=== PATIENT | male | born 1970 | race Caucasian/White ===

== ENCOUNTER → 2017-03-10 15:34 | Outpatient (CLI) | payer MEDICAID, SELFPAY ==
[2017-03-10 18:11] LABS: Alanine Aminotransferase 58 U/L (12-78); Albumin Level 3.5 gm/dL (3.4-5.0); Alkaline Phosphatase 70 U/L (46-116); Anion Gap 11.2 mEq/L (5-15); Aspartate Amino Transferase 26 U/L (15-37); Bilirubin,Total 0.4 mg/dL (0.2-1.0); Blood Urea Nitrogen 16 mg/dL (7-18); Calcium 8.7 mg/dL (8.5-10.1); Carbon Dioxide 30 mmol/L (21.0-32.0); Chloride 100 mmol/L (98-107); Chol/HDL Ratio 5.5 (1-3.5); Cholesterol 143 mg/dL (140-200); Estimated Glomerular Filt Rate 73 ml/min (>60); GFR (African American) 88 ML/MIN (>60); Globulin 3.5 gm/dl (1.3-3.2); Glucose 250 mg/dL (74-106); HDL Cholesterol 26 mg/dL (27-67); Potassium 4.2 mmoL/L (3.5-5.1); Sodium 137 mmol/L (136-145); Thyroid Stimulating Hormone 1.15 uIU/ml (0.358-3.740)
[2017-03-10 18:13] LABS: Triglycerides 510 mg/dL (30-200)
== END ==
PROVIDERS: PCP Nurse Practitioner Family; Visit Provider Physician Assistant
DX: I25.10 Atherosclerotic heart disease of native coronary artery without angina pectoris (principal); I10 Essential (primary) hypertension; E78.1 Pure hyperglyceridemia
CPT/HCPCS: 36415; 80053; 80061; 84443

== ENCOUNTER → 2017-10-06 14:21 | Outpatient (CLI) | payer MEDICAID, SELFPAY ==
--- NOTE | 2017-10-06 14:28 | US_ITS ---
US Arterial Ankle Brachial Ind HISTORY:. Claudication both legs with rest pain bilateral. Diabetic. Previous angioplasty. Hypertension. DC. Smoker. Hyperlipidemia. CAD. Previous vascular surgery. . TECHNIQUE: Segmental pressures obtained of both right and left leg. These are compared to brachial blood pressure to yield index at each level sampled including summary MARCO. The data sheets from the procedure are available in PACS FINDINGS Rest study only performed today No prior studies available for comparison. Blood pressures reported are in millimeters mercury. RIGHT LEG MARCO = 0.8. Right TBI = 0.7 Brachial BP: 164 Thigh BP: BP 125 with index 0.76 Calf BP: BP 125 with index 0.76 Ankle PT: BP 134 with index 0.82 Ankle DP : BP 134 index 0.82 Digit =AP 106 with index 0.65 LEFT LEG MARCO = 0.8 Left TBI = 0.8 Brachial BPD: 161 Thigh BP: BP 106 with index 0.65 Calf BP: BP 129 with index 0.79 Ankle PT:BP 1:30 with index 0.179 Ankle DP: BP 127 with index 0.77 Digit = BP 120 with index 0.78 Normal waveforms: . But Diminished pulses bilaterally IMPRESSION: Mild flow restriction bilaterally With normal waveforms but somewhat diminished pulses bilaterally .RIGHT LEG MARCO = 0.8. Right TBI = 0.7 LEFT LEG MARCO = 0.8 Left TBI = 0.8
== END ==
PROVIDERS: PCP Nurse Practitioner Family; Visit Provider Nurse Practitioner Family
DX: I70.223 Atherosclerosis of native arteries of extremities with rest pain, bilateral legs (principal)
CPT/HCPCS: 93922

== ENCOUNTER → 2018-01-26 15:32 | Outpatient (CLI) | payer MEDICAID, SELFPAY ==
[2018-01-26 16:40] LABS: Alanine Aminotransferase 50 U/L (12-78); Albumin Level 3.4 gm/dL (3.4-5.0); Albumin/Globulin Ratio 0.9 (1.1-1.8); Alkaline Phosphatase 68 U/L (46-116); Anion Gap 9.3 mEq/L (5-15); Aspartate Amino Transferase 18 U/L (15-37); Bilirubin,Total 0.7 mg/dL (0.2-1.0); Blood Urea Nitrogen 11 mg/dL (7-18); Calcium 8.6 mg/dL (8.5-10.1); Carbon Dioxide 33 mmol/L (21.0-32.0); Chloride 102 mmol/L (98-107); Chol/HDL Ratio 4.2 (1-3.5); Cholesterol 121 mg/dL (140-200); Creatinine,Serum 1.05 mg/dL (0.70-1.30); Estimated Glomerular Filt Rate 76 ml/min (>60); GFR (African American) 92 ML/MIN (>60); Globulin 3.9 gm/dl (1.3-3.2); Glucose 187 mg/dL (74-106); HDL Cholesterol 29 mg/dL (27-67); LDL Cholesterol 53 mg/dL (0-130); Potassium 3.3 mmoL/L (3.5-5.1); Sodium 141 mmol/L (136-145); Thyroid Stimulating Hormone 0.73 uIU/ml (0.358-3.740); Total Protein,Serum 7.3 gm/dL (6.4-8.2); Triglycerides 196 mg/dL (30-200); VLDL Cholesterol 39 mg/dL (0-40)
== END ==
PROVIDERS: Visit Provider Physician Assistant
DX: I25.10 Atherosclerotic heart disease of native coronary artery without angina pectoris (principal); E78.5 Hyperlipidemia, unspecified; E78.1 Pure hyperglyceridemia
CPT/HCPCS: 36415; 80053; 80061; 84443

== ENCOUNTER → 2018-02-02 13:00 | Outpatient (CLI) | payer MEDICAID, SELFPAY ==
--- NOTE | 2018-02-02 13:05 | CI_ITS ---
Cerebrovascular Exam Indications: 433.10 Occlusion/stenosis of carotid artery without cerebral infarction. IMPRESSIONS 1. The bilateral vertebral arteries are patent with normal antegrade flow. 2. Study suggests less than 20% stenosis involving the right internal carotid artery and the left internal carotid artery. History: Risk factors: Current tobacco use. Hypertension. Diabetes mellitus. Hyperlipidemia. Carotid duplex study. Complete study and Doppler flow study including spectral analysis, color and chaudhary scale imaging. Height: Height: 172.7cm. Height: 68in. Weight: Weight: 122.5kg. Weight: 269.4lb. Body mass index: BMI: 41.1kg/m^2. Body surface area: BSA: 2.48m^2. Location: Vascular laboratory. Patient status: Outpatient. Tables: Arterial flow: + +--------+--------+ Location V sys V ed + +--------+--------+ Right CCA - proximal 149cm/s 34.1cm/s + +--------+--------+ Right CCA - distal 117cm/s 29.7cm/s + +--------+--------+ Right ECA 141cm/s -------- + +--------+--------+ Right ICA - proximal 92.5cm/s 28.8cm/s + +--------+--------+ Right ICA - mid 99.5cm/s 35.8cm/s + +--------+--------+ Right ICA - distal 98.7cm/s 33.2cm/s + +--------+--------+ Right vertebral 58.5cm/s -------- + +--------+--------+ Left CCA - proximal 158cm/s 28.8cm/s + +--------+--------+ Left CCA - distal 110cm/s 22.7cm/s + +--------+--------+ Left ECA 163cm/s -------- + +--------+--------+ Left ICA - proximal 90.8cm/s 23.6cm/s + +--------+--------+ Left ICA - mid 125cm/s 45.4cm/s + +--------+--------+ Left ICA - distal 127cm/s 43.7cm/s + +--------+--------+ Left vertebral 60.2cm/s -------- + +--------+--------+ Velocity ratios: + + + + + + Right, V sys Right, V ed Left, V sys Left, V ed + + + + + + Max ICA/dist CCA 0.85 1.21 1.15 2 + + + + + + (Report amended ) Electronically signed by: Binu Tavarez [id number]
== END ==
PROVIDERS: PCP Nurse Practitioner Family; Visit Provider Physician Assistant
DX: I65.29 Occlusion and stenosis of unspecified carotid artery
CPT/HCPCS: 93880

== ENCOUNTER 2018-09-24 16:00 | Outpatient (RCR) | payer MEDICAID, SELFPAY | END 2018-10-05 15:36 | disposition home or self-care (01) | LOC: PT.CARL 16:00 | PROVIDERS: Visit Provider Nurse Practitioner Family | DX: M54.5 Low back pain (principal) | CPT/HCPCS: 97012; 97110; 97140; 97163 ==

== ENCOUNTER → 2021-03-22 12:45 | Outpatient (CLI) | payer MEDICAID, SELFPAY ==
--- NOTE | 2021-03-22 12:50 | XR_ITS ---
FINAL REPORT CLINICAL HISTORY: SOB COMPARISON: 09/08/2015 FINDINGS: Two views of the chest were obtained. The heart size and pulmonary vascularity are within normal limits. The mediastinum is normal. No acute pulmonary abnormality is identified. There is no pneumothorax. The bony thorax is intact. IMPRESSION: No active cardiopulmonary disease. Reviewed, Interpreted and Dictated by Ciro Rahman III, MD Transcribed by Radha Riddle Authenticated by Ciro Rahman III, MD on 03/22/2021 01:22:08 PM [facility]
[2021-03-22 13:30] VITALS: PULSE 58; PULSE 61
== END ==
PROVIDERS: PCP Nurse Practitioner Family; Visit Provider Internal Medicine Pulmonary Disease
DX: R06.00 Dyspnea, unspecified (principal)
CPT/HCPCS: 71046; 94060; 94618; 94640; 94727; 94729; 94762

== ENCOUNTER → 2021-04-05 13:54 | Outpatient (CLI) | payer MEDICAID, SELFPAY | PROVIDERS: PCP Nurse Practitioner Family; Visit Provider Internal Medicine Pulmonary Disease | DX: G47.30 Sleep apnea, unspecified (principal) ==

== ENCOUNTER → 2021-06-15 14:45 | Outpatient (CLI) | payer MEDICAID, SELFPAY ==
--- NOTE | 2021-06-15 14:53 | CT_ITS ---
FINAL REPORT TECHNIQUE: Axial CT images were performed through the chest without contrast. High-resolution protocol was utilized with 1.25 mm slices at 10 mm intervals. Study includes supine inspiratory and expiratory sequences and prone inspiratory sequences. Coronal reformatted images were submitted. CLINICAL HISTORY: abn cxr FINDINGS: There is no axillary adenopathy. There is no hilar or mediastinal adenopathy. The heart size is normal. There is some mild to moderate vascular calcification in the coronary arteries. The lungs are clear. The supine expiratory images demonstrates some crowding and markings at the lung bases. There is no evidence of significant air trapping. On the prone inspiratory images, the lungs are clear. Limited images of the upper abdomen are unremarkable. IMPRESSION: Essentially negative chest CT. Reviewed, Interpreted and Dictated by Carlin Handy MD Transcribed by Melisa Duenas Authenticated by Carlin Handy MD on 06/15/2021 04:25:24 PM [facility]
== END ==
PROVIDERS: PCP Nurse Practitioner Family; Visit Provider Internal Medicine Pulmonary Disease
DX: R06.02 Shortness of breath (principal)
CPT/HCPCS: 71250

== ENCOUNTER → 2021-10-11 14:24 | Outpatient (CLI) | payer MEDICAID, SELFPAY | PROVIDERS: PCP Nurse Practitioner Family; Visit Provider Internal Medicine Pulmonary Disease | DX: R06.00 Dyspnea, unspecified (principal) | CPT/HCPCS: 94070; 95070; J7674 ==

== ENCOUNTER → 2022-07-18 12:32 | Outpatient (CLI) | payer MEDICAID, SELFPAY ==
--- NOTE | 2022-07-18 13:33 | CT_ITS ---
FINAL REPORT TECHNIQUE: Axial images were obtained from the lung apex to the mid abdomen by computed tomography. This study was performed with techniques to keep radiation doses as low as reasonably achievable (ALARA). Individualized dose reduction techniques using automated exposure control or adjustment of mA and/or kV according to the patient's size were employed. CLINICAL HISTORY: lung cancer screening COMPARISON: 06/15/2021 FINDINGS: CHEST CT LOW DOSE CTDI vol (mGy): 2.90 DLP (mGy-cm): 98.99 There is dense coronary artery calcification in the LAD and circumflex. There is no axillary adenopathy. There is no hilar or mediastinal adenopathy. The heart is normal in size. There is no pericardial or pleural effusion. Lung window images demonstrate no suspicious infiltrate or nodule. Limited images of the upper abdomen are unremarkable. IMPRESSION: Lung RADS category 1. Recommend 12 month follow-up low-dose chest CT. Reviewed, Interpreted and Dictated by Carlin Handy MD Transcribed by Radha Riddle Authenticated and [facility]
== END ==
PROVIDERS: PCP Nurse Practitioner Family; Visit Provider Internal Medicine Pulmonary Disease
DX: Z87.891 Personal history of nicotine dependence (principal); Z12.2 Encounter for screening for malignant neoplasm of respiratory organs; R06.09 Other forms of dyspnea
CPT/HCPCS: 71271; 94060; 94618; 94726; 94729

== ENCOUNTER 2023-07-23 14:41 | Outpatient (CLI) | payer MEDICAID, SELFPAY ==
--- NOTE | 2023-07-23 14:42 | CT_ITS ---
FINAL REPORT CLINICAL HISTORY: lung cancer screening current smoker 1ppd x 30 years chf lung cancer in father and sister COMPARISON: 07/18/2022 FINDINGS: CTDI vol (mGy): 2.90 DLP: 98.[address] images of the chest were obtained using the low-dose protocol for screening. There is no evidence of mediastinal or hilar mass or adenopathy. No axillary mass or adenopathy is identified. On the lung window images, no pulmonary mass or suspicious nodule is identified. There is a calcified granuloma in the right lower lobe. Severe left coronary artery calcifications are noted. IMPRESSION: Lung RADS category 1 . Recommend 12 month followup low-dose CT for further evaluation. Reviewed, Interpreted and Dictated by Ciro Rahman III, MD Transcribed by Diana Blanchard Authenticated and . [facility]
== END 2023-07-23 23:59 | disposition home or self-care (01) ==
LOC: RT 14:42
PROVIDERS: PCP Internal Medicine; Visit Provider Internal Medicine Pulmonary Disease
DX: F17.210 Nicotine dependence, cigarettes, uncomplicated (principal)
CPT/HCPCS: 71271

== ENCOUNTER 2023-08-06 14:39 | Outpatient (CLI) | payer MEDICAID, SELFPAY ==
[2023-08-06 16:35] VITALS: PULSE 83; PULSE 86
[2023-08-06] MEDS: ALBUTEROL 0.083% 2.5 MG/3 ML NEB IH (16:35)
== END 2023-08-06 23:59 | disposition home or self-care (01) ==
LOC: RT 14:40
PROVIDERS: PCP Internal Medicine; Visit Provider Internal Medicine Pulmonary Disease
DX: R06.09 Other forms of dyspnea (principal); J44.9 Chronic obstructive pulmonary disease, unspecified
CPT/HCPCS: 94060; 94618; 94640; 94726; 94729; J7613

== ENCOUNTER 2023-09-22 13:30 | Outpatient (CLI) | payer MEDICAID, SELFPAY ==
[2023-09-22 14:00] LABS: Basophils # 0.1 K/mm3 (0-0.2); Basophils % 0.6 % (0.1-2.0); Eosinophils # 0.2 K/mm3 (0.0-0.4); Eosinophils % 2.1 % (0.1-12.0); Hematocrit 45.7 % (42.0-52.0); Hemoglobin 15.3 g/dL (14.1-18.0); Lymphocytes # 2.3 K/mm3 (0.7-4.5); Lymphocytes % 26.6 % (10-50); Mean Corpuscular HGB Conc 33.4 g/dL (31.8-35.4); Mean Corpuscular Hemoglobin 33.4 pg (27.0-31.2); Mean Platelet Volume 8.3 fl (7.4-10.4); Monocytes # 0.4 K/mm3 (0.1-1.0); Monocytes % 5.1 % (1.7-9.3); Neutrophils # 5.6 K/mm3 (1.8-7.8); Neutrophils % 65.4 % (37.0-80.0); Platelet Count 236 K/mm3 (142-424); Red Blood Count 4.57 M/mm3 (4.60-6.20); Red Cell Distribution Width 14.8 % (11.5-17.5); White Blood Count 8.6 K/mm3 (4.8-10.8)
[2023-09-28 09:39] LABS: D001-IgE D pteronyssinus <0.10 kU/L (Class 0); D002-IgE D farinae <0.10 kU/L (Class 0); E001-IgE Cat Dander <0.10 kU/L (Class 0); E005-IgE Dog Dander <0.10 kU/L (Class 0); E072-IgE Mouse Urine <0.10 kU/L (Class 0); G002-IgE Bermuda Grass <0.10 kU/L (Class 0); G006-IgE Timothy Grass <0.10 kU/L (Class 0); I006-IgE Cockroach, German <0.10 kU/L (Class 0); Immunoglobulin E, Total 180 IU/mL (6-495); M001-IgE Penicillium chrysogen <0.10 kU/L (Class 0); M002-IgE Cladosporium herbarum <0.10 kU/L (Class 0); M003-IgE Aspergillus fumigatus <0.10 kU/L (Class 0); M006-IgE Alternaria alternata <0.10 kU/L (Class 0); T001-IgE Maple/Box Elder <0.10 kU/L (Class 0); T003-IgE Common Silver Birch <0.10 kU/L (Class 0); T006-IgE Cedar, Mountain <0.10 kU/L (Class 0); T007-IgE Oak, White <0.10 kU/L (Class 0); T008-IgE Elm, American <0.10 kU/L (Class 0); T010-IgE Walnut <0.10 kU/L (Class 0); T011-IgE Maple Leaf Sycamore <0.10 kU/L (Class 0); T014-IgE Cottonwood <0.10 kU/L (Class 0); T015-IgE Ash, White <0.10 kU/L (Class 0); T022-IgE Pecan, Hickory <0.10 kU/L (Class 0); T070-IgE White Mulberry <0.10 kU/L (Class 0); W001-IgE Ragweed, Short <0.10 kU/L (Class 0); W011-IgE Thistle, Russian <0.10 kU/L (Class 0); W014-IgE Pigweed, Common <0.10 kU/L (Class 0); W018-IgE Sheep Sorrel <0.10 kU/L (Class 0)
[2023-10-08 15:28] LABS: Antinuclear Antibodies (ANA) Negative
== END 2023-09-22 23:59 | disposition home or self-care (01) ==
LOC: LAB 13:31
PROVIDERS: PCP Internal Medicine; Visit Provider Internal Medicine Pulmonary Disease
DX: J45.909 Unspecified asthma, uncomplicated (principal); J30.9 Allergic rhinitis, unspecified; J84.9 Interstitial pulmonary disease, unspecified; Z72.0 Tobacco use
CPT/HCPCS: 36415; 82785; 85025; 86003; 86038; 86225; 86235

== ENCOUNTER 2024-08-18 12:51 | Outpatient (CLI) | payer MEDICAID, SELFPAY ==
--- OUTSIDE RECORDS SUMMARY | 2024-07-20 10:15 | XMS_ITS | Continuity of Care Document ---
Author Organization [facility] Phone Care Team Providers Care Family Assistant Name Role Phone DON CARRANZA Admitting NO, DEFINED P Primary Care Unavailable DON CARRANZA Primary Attending [phone] DON CARRANZA Unavailable ALLERGIES AND ADVERSE REACTIONS ALLERGIES AND ADVERSE REACTIONS Code System Allergy Substance Adverse Reaction Date Reaction (Severity) [place] [address] RXNorm LISINOPRIL Adverse reaction to substance COUGH active Patient [id number] on September 12, 2015 9:11:41 PM [place] 7984 RXNorm PENICILLIN Rash active Patient [id number] on July 19, 2024 11:36:10 AM [place] 5489 RXNorm HYDROCODONE Adverse reaction to substance upset stomach active Patient [id number] on July 19, 2024 11:36:10 AM [place] FAMILY HISTORY RELATION: Father Status: Cause of : Unknown Age at : 72 SNOMED-CT Diagnosis Age At Onset [id number] Heart disease [id number] Malignant tumor of lung RELATION: Mother Status: Cause of : Unknown Age at : 72 SNOMED-CT Diagnosis Age At Onset [id number] Heart disease [id number] Hypertensive disorder [id number] Diabetes mellitus [id number] Cerebrovascular accident RESULTS Patient: GERONIMO Sandoval Date of : 1970 7 LABORATORY RESULTS ORDER 200: GRAM STAIN (LOINC : 664-3) ORDER DATE: July 14, 2024 9:32:00 PM UTC Specimen Source: GRAM STAIN Specimen Type: Gram stain me thod PERFORMING LAB: [address] [id number] Result Comment: Final Result Date: 2024 7:51:00 PM [place] (TECH: AAC) LOINC TEST [place] [address]-4 Specimen source [Identifier] of Unspecified specimen N WOUND July 15 7:51:00 PM UTC (TECH: AAC) 664-3 Microscopic observat ion [Identifier] in Unspecified specimen by Gram stain N POSITIVE 2024 7:51:00 PM UTC (TECH: AAC) 51411-4 Morphology [interpretation] in Blood Narrative N COCCI CLUSTERS 2024 7:51:00 PM UTC (TECH: AAC) 07335-7 Other quantitation b y CAP cancer protocols N RARE July 15 7:51:00 PM UTC (TECH: AAC) 664-3 Microscopic observat ion [Identifier] in Unspecified specimen by Gram stain N POSITIVE 2024 7:51:00 PM UTC (TECH: AAC) 09062-3 Morphology [interpretation] in Blood Narrative N COCCI PAIRS 2024 7:51:00 PM UTC (TECH: AAC) 22885-9 Other quantitation b y CAP cancer protocols N RARE July 15 7:51:00 PM UTC (TECH: AAC) 55186-2 Leukocytes [Presence ] in Unspecified specimen by Gram stain N OCCASIONAL 2024 7:51:00 PM UTC (TECH: AAC) 28431-1 Epithelial cells [Presence] in Unspecified specimen by Gram stain N NONE SEEN 2024 7:51:00 PM UTC (TECH: AAC) 94601-3 Yeast [Presence] in Unspecified specimen by Wet preparation N NO YST SEEN 2024 7:51:00 PM UTC (TECH: AAC) 53866-8 Gram positive bacter ia identified [Interpretation] by Probe in Positive blood culture N PASS PASS 2024 7:51:00 PM UTC (TECH: AAC) 73565-4 Gram negative bacill i identified in Isolate by Organism specific culture N PASS PASS 2024 7:51:00 PM UTC (TECH: AAC) LABORATORY NARRATIVE RESULTS Information is not available RADIOLOGY RESULTS Information is not available PATHOLOGY NARRATIVE RESULTS Information is not available MICROBIOLOGY RESULTS No Micro Labs/Results Exist for Patient BLOOD ADMIN RESULTS Information is not available MEDICATIONS HOME MEDICATIONS Status RXNORM NDC Medication Dose Route Frequency Dates Comments Reported By Updated By Drug Treatment Unknown DISCHARGE MEDICATIONS Status RXNORM NDC Medication Dose Route Frequency Dates Comments Physician Updated By No Discharge Medication Info rmation Available INPATIENT MEDICATIONS Status RXNORM NDC Medication Dose Route Frequency Rat e Quantity Dates Comments Physician Updated By No Inpatient Medication Info rmation Available SOCIAL HISTORY SOCIAL HISTORY SNOMED-CT Social History Element Description Effective Dates Offered Cessation Comment UpdatedBy [id number] Historical Tobacco smoking status Current Every Day Smoker [id number] on July 20, 2024 11:37:53 AM [facility] SOCIAL HISTORY - Gender Sex: Male SOCIAL HISTORY - Status : status i nformation is not available Intention in Next Year: intention information is not available SOCIAL HISTORY - Sexual Behavior Sexual Orientation Gender Identity SNOMED-CT Description SNO MED -CT Description Activity Level No of Partners Partner Type UpdatedBy Information is not available HEALTH CONCERNS Problems Concern Status Health Concern problem infor mation not available. Smoking Status Status Years Used Consumed packs p er day Health Concern smoking histo ry information not available. Family History Concern Status Health Concern family histor y information not available. MEDICAL EQUIPMENT MEDICAL EQUIPMENT Device Status Quantity Dates Procedure Comments Updated By Implantable lumbar neuromuscular electrical stimulation system lead FRED: ()[id number] Assigning Authority: [facility] Device Identifier:[id number] Serial Number:[id number] Expiration Date:2025-11-12 ACTIVE 1 Implanted: February 03, 2024 Implantation of permanent spinal cord stimulator [id number] on February 03, 2024 9:09:16 PM [facility] Implantable lumbar neuromuscular electrical stimulation system lead FRED: )[id number] Assigning Authority: FDA Device Identifier:[id number] Serial Number:[id number] Expiration Date:2025-10-10 ACTIVE 1 Implanted: February 03, 2024 Implantation of permanent spinal cord stimulator [id number] on February 03, 2024 9:09:44 PM [facility] Implantable lumbar neuromuscular electrical stimulation system pulse generator FRED: )[id number] Assigning Authority: FDA Device Identifier:[id number] Serial Number:[id number] Expiration Date:2025-11-13 ACTIVE 1 Implanted: February 03, 2024 Implantation of permanent spinal cord stimulator [id number] on February 03, 2024 9:15:40 PM [facility] Catheter/tube guerrero FRED: [id number] Assigning Authority: [facility] Device Identifier:[id number] Lot or Batch Number:[id number] Expiration Date:2025-11-09 ACTIVE 2 Implanted: February 03, 2024 Implantation of permanent spinal cord stimulator [id number] on February 03, 2024 9:16:07 PM [place] ENCOUNTERS ENCOUNTER INFORMATION Reason for Visit OV Admission July 14, 2024 4:56:[address] [id number] Discharge July 14, 2024 4:56:00 PM UT DISC HARGED TO HOME OR SELF CARE ENCOUNTER DIAGNOSES Notes information is not dennis ilable. Code System Diagnosis Onset Date Diagnosis information is not available. 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, UNSPECIFIED [id number] on July 20, 2024 2:15:12 PM UT E11.22 ICD10 TYPE 2 DIABETES MELLITUS WITH DIABETIC CHRONIC KIDNEY DISEASE [id number] on July 20, 2024 2:15:12 PM UT N18.9 ICD10 CHRONIC KIDNEY DISEASE, UNSP ECIFIED [id number] on July 20, 2024 2:15:12 PM UT M79.2 ICD10 NEURALGIA AND NEURITIS, UNSP ECIFIED [id number] on July 20, 2024 2:15:12 PM UT 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, LUMBAR REGION [id number] on July 20, 2024 2:15:12 PM UT F11.20 ICD10 OPIOID DEPENDENCE, UNCOMPLIC ATED [id number] on July 20, 2024 2:15:12 PM [facility] F17.200 ICD10 NICOTINE DEPENDE NCE, UNSPECIFIED, UNCOMPLICATED [id number] on July 20, 2024 2:15:12 PM UT Z79.4 ICD10 USP (CURRENT) USE OF I NSULIN [id number] on July 20, 2024 2:15:12 PM UT Z79.84 ICD10 QUANTITATIVE ANALYST (CURRE NT) USE OF ORAL HYPOGLYCEMIC DRUGS [id number] on July 20, 2024 2:15:12 PM UT Z79.85 ICD10 LONG-TERM (CURRE NT) USE OF INJECTABLE NON-INSULIN ANTIDIABETIC DRUGS [id number] on July 20, 2024 2:15:12 PM UT Z86.73 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), AND CEREBRAL INFARCTION WITHOUT RESIDUAL DEFICITS [id number] on July 20, 2024 2:15:12 PM UT Z79.02 ICD10 USP (CURRE NT) USE OF ANTITHROMBOTICS/ANTIPLATELETS [id number] on July 20, 2024 2:15:12 PM [facility] Z79.82 ICD10 USP (CURRENT) USE OF A SPIRIN [id number] on July 20, 2024 2:15:12 PM [facility] Z96.82 ICD10 PRESENCE OF NEUROSTIMULATOR [id number] on July 20, 2024 2:15:12 PM [facility] Z88.0 ICD10 ALLERGY STATUS TO PENICILLIN [id number] on July 20, 2024 2:15:12 PM [facility] Z88.8 ICD10 ALLERGY STATUS T O OTHER DRUGS, MEDICAMENTS AND BIOLOGICAL SUBSTANCES [id number] on July 20, 2024 2:15:12 PM [facility] CARE TEAM Care Family Assistant Role DON CARRANZA Admitting DEFINED NO Primary Care DON CARRANZA Primary Attending DON CARRANZA 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 Role on Team Status Start Date End Date Update d By NO DEFINED PRIMARY C PCP normal July 14, 2024 4:00:00 AM [facility] July 14, 2024 4:56:00 PM [facility] [id number] on July 14, 2024 4:57:12 PM [facility] TERE Boyd PHY Referring normal July 14, 2024 4:00:00 AM [facility] July 14, 2024 4:56:00 PM [facility] [id number] on July 14, 2024 4:57:12 PM [facility] TERE MCGREGOR Attending normal July 14, 2024 4:00:00 AM [facility] July 14, 2024 4:56:00 PM [facility] [id number] on July 14, 2024 4:57:12 PM [facility] TERE MCGREGOR Admitting normal July 14, 2024 4:00:00 AM [facility] July 14, 2024 4:56:00 PM [facility] [id number] on July 14, 2024 4:57:12 PM [facility]
--- OUTSIDE RECORDS SUMMARY | 2024-07-22 10:28 | XMS_ITS | Continuity of Care Document ---
Author Organization [facility] Phone Care Team Providers Care Olive Grower Name Role Phone NO, DEFINED P Primary Care Unavailable NO, DEFINED P Unavailable Unavailable DON HERRERA Admitting DON HERRERA Primary Attending [phone] DON HERRERA Surgeon ALLERGIES AND ADVERSE REACTIONS ALLERGIES AND ADVERSE REACTIONS Code System Allergy Substance Adverse Reaction Date Reaction (Severity) [place] [address] RXNorm LISINOPRIL Adverse reaction to substance COUGH active Patient [id number] on September 12, 2015 9:11:41 PM UT 0417 RXNorm PENICILLIN Rash active Patient [id number] on July 19, 2024 11:36:10 AM UT 5427 RXNorm HYDROCODONE Adverse reaction to substance upset stomach active Patient [id number] on July 19, 2024 11:36:10 AM UT ASSESSMENTS Complication associated with neurological device ; FAMILY HISTORY RELATION: Father Status: Cause of : Unknown Age at : 72 SNOMED-CT Diagnosis Age At Onset [id number] Heart disease [id number] Malignant tumor of lung RELATION: Mother Status: Cause of : Unknown Age at : 72 SNOMED-CT Diagnosis Age At Onset [id number] Heart disease [id number] Hypertensive disorder [id number] Diabetes mellitus [id number] Cerebrovascular accident PROBLEMS PATIENT PROBLEMS Code Description/Comments Category Status Upda roque By [id number] Complication associa roque with neurological device active [id number] on July 20 10:52:47 AM UT RESULTS Patient: GERONIMO Sandoval Date of : 1970 7 LABORATORY RESULTS ORDER 700: COMP METABOLIC PA LIOR (LOINC: 48961-1) ORDER DATE: July 19, 2024 6:18:00 PM UT Specimen Source: PLASMA Specimen Type: Plasma specim en PERFORMING LAB: [facility] [address] [id number] Result Comment: Final Result Date: July 19, 2024 9:25:00 PM UTC (TECH: [facility]raPass) LOINC TEST FLAG RESULT REFERENCE RANGE UPDA ROQUE BY 2951-2 Sodium [Moles/volume ] in Serum or Plasma N 143 mmol/L 136 mmol/L - 145 mmol/L July 19, 2024 9:25:00 PM UTC (TECH: JNJ) 2823-3 Potassium [Moles/volume] in Serum or Plasma N 4.1 mmol/L 3.6 mmol/L - 5.0 mmol/L July 19, 2024 9:25:00 PM UTC (TECH: JNJ) 2075-0 Chloride [Moles/volu me] in Serum or Plasma N 106 mmol/L 98 mmol/L - 107 mmol/L July 19, 2024 9:25:00 PM UTC (TECH: JNJ) 8-9 Carbon dioxide, tota l [Moles/volume] in Serum or Plasma N 30.9 mmol/L 21.0 mmol/L - 32.0 mmol/L July 19, 2024 9:25:00 PM UTC (TECH: [facility]) 85061-9 Anion gap in Blood N 10.2 J 2024 9:25:00 PM UTC (TECH: JNJ) 2345-7 Glucose [Mass/volume ] in Serum or Plasma H 151 mg/dl 70 mg/dl - 120 mg/dl July 19, 2024 9:25:00 PM UTC (TECH: JNJ) 6299-2 Urea nitrogen [Mass/volume] in Blood H 29 mg/dL 7 mg/dL - 18 mg/dL July 19, 2024 9:25:00 PM UTC (TECH: JNJ) 01371-4 Creatinine [Moles/volume] in Blood H 2.2 mg/dL 0.6 mg/dL - 1.3 mg/dL July 19, 2024 9:25:00 PM UTC (TECH: TradyoJ) 42518-7 Glomerular filtratio n rate/1.73 sq M.predicted by Creatinine-based formula (MDRD) L 35 mlpermin 60 mlpermin July 19, 2024 9:25:00 PM UTC (TECH: JNJ) 84973-4 Osmolality of Serum or Plasma by calculated by sum of electrolytes H 306 mosm/kg 275 mosm/kg - 301 mosm/kg July 19, 2024 9:25:00 PM [facility] (BlooBox: [employer]) 2885-2 Protein [Mass/volume ] in Serum or Plasma N 7.3 g/dl 6.4 g/dl - 8.2 g/dl July 19, 2024 9:25:00 PM [facility] (TECH: [employer]) 1751-7 Albumin [Mass/volume ] in Serum or Plasma N 3.5 g/dl 3.4 g/dl - 5.0 g/dl July 19, 2024 9:25:00 PM UT (TECH: [facility]) 2336-6 Globulin [Mass/volum e] in Serum N 3.8 July 19, 2024 9:25:00 PM [facility] (TECH: [employer]) 1759-0 Albumin/Globulin [Ma ss Ratio] in Serum or Plasma N 0.9 0.7 - 2 July 19, 2024 9:25:00 PM [facility] ([employer]ooBox: [employer]) 07888-3 Calcium [Mass/volume ] in Serum or Plasma N 9.0 mg/dl 8.5 mg/dl - 10.5 mg/dl July 19, 2024 9:25:00 PM [facility] ([employer]: [employer]) 1975-2 Bilirubin.total [Mass/volume] in Serum or Plasma N 0.60 mg/dL 0.10 mg/dL - 1.00 mg/dL July 19, 2024 9:25:00 PM [facility] (TECH: [employer]) 1920-8 Aspartate aminotransferase [Enzymatic activity/volume] in Serum or Plasma N 21 U/L 0 U/L - 37 U/L July 19, 2024 9:25:00 PM [facility] (TECH: [employer]) 1742-6 Alanine aminotransferase [Enzymatic activity/volume] in Serum or Plasma N 30 U/L 0 U/L - 65 U/L July 19, 2024 9:25:00 PM [facility] (TECH: [employer]) 0668-6 Alkaline phosphatase [Enzymatic activity/volume] in Serum or Plasma N 60 U/L 46 U/L - 116 U/L July 19, 2024 9:25:00 PM [facility] (TECH: [employer]) ORDER 800: CBC AUTO W DIFF ( LOINC: 63335-0) ORDER DATE: July 19, 2024 6:18:00 PM UTC Specimen Source: EDTA Specimen Type: Blood specime n with EDTA PERFORMING LAB: [address] [id number] Result Comment: Final Result Date: July 19, 2024 8:01:00 PM UTC (TECH: JNJ) LOINC TEST FLAG RESULT REFERENCE RANGE UPDA ROQUE BY 6690-2 Leukocytes [#/volume] in Blood by Automated count N 6.8 K/ul 4.0 K/ul - 10.5 K/ul July 19, 2024 8:01:00 PM UTC (TECH: JNJ) 789-8 Erythrocytes [#/volume] in Blood by Automated count N 4.8 M/mm3 4.7 M/mm3 - 6.1 M/mm3 July 19, 2024 8:01:00 PM UTC (TECH: JNJ) 718-7 Hemoglobin [Mass/volume] in Blood N 14.0 gm/dl 13.5 gm/dl - 18.0 gm/dl July 19, 2024 8:01:00 PM UTC (TECH: JNJ) 20002-3 Hematocrit [Volume Fraction] of Blood N 43.9 % 42.0 % - 52.0 % July 19, 2024 8:01:00 PM UTC (TECH: JNJ) 787-2 Erythrocyte mean corpuscular volume [Entitic volume] by Automated count N 91.5 fl 78 fl - 100 fl July 19, 2024 8:01:00 PM UTC (TECH: JNJ) 785-6 Erythrocyte mean corpuscular hemoglobin [Entitic mass] by Automated count N 29.2 pg 27 pg - 31 pg July 19, 2024 8:01:00 PM UTC (TECH: JNJ) 786-4 Erythrocyte mean corpuscular hemoglobin concentration [Mass/volume] by Automated count L 31.9 g/dl 32 g/dl - 36 g/dl July 19, 2024 8:01:00 PM UTC (TECH: JNJ) 45116-6 Erythrocyte distribution width [Ratio] H 16.0 % 11.5 % - 14.0 % July 19, 2024 8:01:00 PM UTC (TECH: JNJ) 777-3 Platelets [#/volume] in Blood by Automated count N 269 K/ul 150 K/ul - 450 K/ul July 19, 2024 8:01:00 PM UTC (TECH: [employer]) 76686-2 Platelet mean volume [Entitic volume] in Blood by Automated count H 10.6 fl 6 fl - 9.5 fl July 19, 2024 8:01:00 PM UTC (TECH: [employer]) 17926-5 Neutrophils/100 leukocytes in Blood N 50.2 % 43 % - 65 % July 19, 2024 8:01:00 PM UTC (TECH: [employer]) 736-9 Lymphocytes/100 leukocytes in Blood by Automated count N 38.2 % 20.5 % - 45.5 % July 19, 2024 8:01:00 PM UTC (TECH: [employer]) 5905-5 Monocytes/100 leukocytes in Blood by Automated count N 8.4 % 5.5 % - 11.7 % July 19, 2024 8:01:00 PM UTC (TECH: [employer]) 713-8 Eosinophils/100 leukocytes in Blood by Automated count N 2.2 % 0.9 % - 2.9 % July 19, 2024 8:01:00 PM UTC (TECH: [employer]) 706-2 Basophils/100 leukocytes in Blood by Automated count N 0.9 % 0.2 % - 1.0 % July 19, 2024 8:01:00 PM UTC (TECH: [employer]) 75962-6 Immature granulocytes/100 leukocytes in Blood by Automated count N 0.1 % 0.0 % - 0.8 % July 19, 2024 8:01:00 PM UTC (TECH: [employer]) 66605-7 Nucleated cells [#/volume] in Blood N 0.0 % July 19, 2024 8:01:00 PM UTC (TECH: [employer]) 05649-7 Neutrophils [#/volume] in Blood N 3.4 K/uL 2.2 K/uL - 4.8 K/uL July 19, 2024 8:01:00 PM UTC (TECH: TradyoJ) 731-0 Lymphocytes [#/volume] in Blood by Automated count N 2.6 CELL/MCL 1.3 CELL/MCL - 2.9 CELL/MCL July 19, 2024 8:01:00 PM UTC (TECH: JNJ) 742-7 Monocytes [#/volume] in Blood by Automated count N 0.6 CELL/MCL 0.3 CELL/MCL - 0.8 CELL/MCL July 19, 2024 8:01:00 PM UTC (TECH: [facility]) 711-2 Eosinophils [#/volume] in Blood by Automated count N 0.2 CELL/MCL 0 CELL/MCL - 0.2 CELL/MCL July 19, 2024 8:01:00 PM UTC (TECH: [facility]) 704-7 Basophils [#/volume] in Blood by Automated count N 0.1 CELL/MCL 0.0 CELL/MCL - 1.0 CELL/MCL July 19, 2024 8:01:00 PM UTC (TECH: [facility]) 07966-0 Immature granulocytes [#/volume] in Blood N 0.01 K/ul July 19, 2024 8:01:00 PM UTC (TECH: [facility]) 04849-2 Nucleated cells [#/volume] in Blood N 0.00 K/uL July 19, 2024 8:01:00 PM UT (TECH: [facility]) 32644-4 Manual Differential panel - Blood N NO July 19, 2024 8:01:00 PM UT (TECH: [facility]) ORDER 1100: GLUCOSE BEDSIDE TESTING (LOINC: 58027-5) ORDER DATE: July 20, 2024 12:08:00 PM UT Specimen Source: WHOLE BLOOD Specimen Type: Whole blood s ample PERFORMING LAB: [address] [id number] Result Comment: July 20, 2024 12:13:00 PM [facility] Test performed by: [id number] ; Instrument: [id number] Final Result Date: July 20, 2024 12:13:00 PM [facility] LOINC TEST FLAG [place] [address]-4 Glucose [Mass/volume ] in Capillary blood by Glucometer H 220 mg/dl 70 mg/dl - 105 mg/dl July 20 12:13:00 PM [facility] LABORATORY NARRATIVE RESULTS Information is not available RADIOLOGY RESULTS Information is not available PATHOLOGY NARRATIVE RESULTS ORDER 1400: PATHOLOGY SPECIM EN (LOINC: 61576-2) ORDER DATE: July 20, 2024 4:18:00 PM UT Specimen Source: PATH Specimen Type: Refer to path ology laboratory PERFORMING LAB: [facility] [address] [id number] Final Result Date: July 22 1:35:00 PM UT TEST: PATHOLOGY SPECIMEN MICROBIOLOGY RESULTS No Micro Labs/Results Exist for Patient BLOOD ADMIN RESULTS Information is not available TREATMENT PLAN DISCHARGE MEDICATIONS Status RXNORM Medication Dose Route Frequency Dates Comments U pdated By Continued 619047 bumetanide 2 mg tablet 1 TAB ORAL THREE TIMES A DAY Prescr ibed: July 20, 2024 2:19:2 3 PM UT [id number] on July 20, 2024 2:19:23 PM UT Continued 1724966 oxyCODONE-Acet aminophen Oral Tablet 5-325 MG 1 TAB ORAL EVERY EIGHT HOURS Prescr ibed: July 20, 2024 2:19:2 3 PM UT Take one tablet by mouth every 8 hours as needed for 4 days [id number] on July 20, 2024 2:19:23 PM UT Continued 038456 aspirin 81 mg tablet,delayed release 1 TAB ORAL ONCE DAILY Prescr ibed: July 20, 2024 2:19:2 3 PM UT [id number] on July 20, 2024 2:19:23 PM UT Continued 877185 Ventolin HFA 90 mcg/actuation aerosol inhaler 2 PUF INHALED NEEDED Prescr ibed: July 20, 2024 2:19:2 3 PM UT [id number] on July 20, 2024 2:19:23 PM UT Continued 8030314 azelastine 137 mcg (0.1 %) nasal spray 1 SPR NASAL NEEDED Prescr ibed: July 20, 2024 2:19:2 3 PM UT [id number] on July 20, 2024 2:19:23 PM UT Continued 035599 atorvastatin 80 mg tablet 1 TAB ORAL ONCE DAILY Prescr ibed: July 20, 2024 2:19:2 3 PM UT [id number] on July 20, 2024 2:19:23 PM UT Continued 2821527 Jardiance 25 mg tablet 1 TAB ORAL ONCE DAILY Prescr ibed: July 20, 2024 2:19:2 3 PM UT [id number] on July 20, 2024 2:19:23 PM UT Continued 582750 nitroglycerin 0.4 mg sublingual tablet 0 Prescr ibed: July 20, 2024 2:19:2 3 PM [facility] [id number] on July 20, 2024 2:19:23 PM [facility] Continued 0659751 Entresto 24 mg-26 mg tablet 1 TAB ORAL ONCE DAILY Prescr ibed: July 20, 2024 2:19:2 3 PM [facility] [id number] on July 20, 2024 2:19:23 PM [facility] Continued 6605201 Trulicity 0.75 mg/0.5 mL subcutaneous pen injector 0.75 MG SUBCUTANEOUS ONCE EACH WEEK Prescr ibed: July 20, 2024 2:19:2 3 PM [facility] [id number] on July 20, 2024 2:19:23 PM [facility] Continued 701311 Omeprazole Oral Capsule Delayed Release 40 MG 1 TAB ORAL ONCE DAILY Prescr ibed: July 20, 2024 2:19:2 3 PM [facility] [id number] on July 20, 2024 2:19:23 PM [facility] Continued 273080 ranolazine ER 1,000 mg tablet,extende d release,12 hr 1 TAB ORAL ONCE DAILY Prescr ibed: July 20, 2024 2:19:2 3 PM [facility] [id number] on July 20, 2024 2:19:23 PM [facility] Continued 499962 Bisoprolol Fumarate Oral Tablet 10 MG 1 TAB ORAL TWICE A DAY Prescr ibed: July 20, 2024 2:19:2 3 PM [facility] [id number] on July 20, 2024 2:19:23 PM [facility] Continued 2364543 Allergy Relief (cetirizine) 10 mg tablet 10 MG ORAL ONCE DAILY Prescr ibed: July 20, 2024 2:19:2 3 PM [facility] [id number] on July 20, 2024 2:19:23 PM [facility] Continued 601500 ondansetron 4 mg disintegrating tablet 1 TAB ORAL NEEDED Prescr ibed: July 20, 2024 2:19:2 3 PM [facility] [id number] on July 20, 2024 2:19:23 PM [facility] Continued 014559 montelukast 10 mg tablet 1 TAB ORAL ONCE DAILY Prescr ibed: July 20, 2024 2:19:2 3 PM [facility] [id number] on July 20, 2024 2:19:23 PM [facility] Continued 261054 Advair HFA 230 mcg-21 mcg/actuation aerosol inhaler 1 PUF INHALED ONCE DAILY Prescr ibed: July 20, 2024 2:19:2 3 PM [facility] [id number] on July 20, 2024 2:19:23 PM [facility] Continued 071641 quetiapine 50 mg tablet 1 TAB ORAL ONCE DAILY Prescr ibed: July 20, 2024 2:19:2 3 PM [facility] [id number] on July 20, 2024 2:19:23 PM [facility] Continued 628012 insulin lispro (U-100) 100 unit/mL subcutaneous solution 0 Prescr ibed: July 20, 2024 2:19:2 3 PM [facility] [id number] on July 20, 2024 2:19:23 PM [facility] Continued 1896961 potassium chloride ER 20 mEq tablet,extende d release(part/c ryst) 1 TAB ORAL ONCE DAILY Prescr ibed: July 20, 2024 2:19:2 3 PM [facility] [id number] on July 20, 2024 2:19:23 PM [facility] Continued 1662986 fluticasone propionate 50 mcg/actuation nasal spray,suspensi on 2 SPR NASAL ONCE DAILY Prescr ibed: July 20, 2024 2:19:2 3 PM [facility] [id number] on July 20, 2024 2:19:23 PM [facility] Continued 079748 fenofibrate nanocrystalliz ed 48 mg tablet 1 TAB ORAL ONCE DAILY Prescr ibed: July 20, 2024 2:19:2 3 PM [facility] [id number] on July 20, 2024 2:19:23 PM [facility] Continued 6666818 ipratropium 0.5 mg-albuterol 3 mg (2.5 mg base)/3 mL nebulization soln 2.5 MG INHALED NEEDED Prescr ibed: July 20, 2024 2:19:2 3 PM [facility] [id number] on July 20, 2024 2:19:23 PM [facility] Continued 005467 gabapentin 400 mg capsule 1 TAB ORAL THREE TIMES A DAY Prescr ibed: July 20, 2024 2:19:2 3 PM [facility] [id number] on July 20, 2024 2:19:23 PM [facility] Continued cyanocobalamin (vit B-12) 500 mcg tablet 1 TAB ORAL ONCE DAILY Prescr ibed: July 20, 2024 2:19:2 3 PM [facility] [id number] on July 20, 2024 2:19:23 PM [facility] Continued 615993 clopidogrel 75 mg tablet 1 TAB ORAL ONCE DAILY Prescr ibed: July 20, 2024 2:19:2 3 PM [facility] [id number] on July 20, 2024 2:19:23 PM [facility] PATIENT OPEN ORDERS Code System Description Frequency Occurrences Priority Start Date Ordering Physician Updated By Patient open order informati on is not available. SCHEDULED PROCEDURES Code System Description Status Scheduled Date Upd ated By Patient scheduled procedure information is not available. MEDICATIONS HOME MEDICATIONS Status RXNORM [facility] Medication Dose Route Frequency Dates Comments Reported By Updated By Active [id number] 02741 30139 0 Allergy Relief (cetirizine) 10 mg tablet 10.0 MG ORAL DAILY Last Dose: July 19, 2024 12:00: 00 PM [facility] [id number] on July 20, 2024 11:25:27 AM [facility] Active 497863 10981 79277 2 Advair HFA 230 mcg-21 mcg/actuatio n aerosol inhaler 1.0 PUF INHALA TION DAILY Last Dose: July 20, 2024 10:00: 00 AM [facility] [id number] on July 20, 2024 11:25:41 AM [facility] Active 5020185 50477 02190 2 Entresto 24 mg-26 mg tablet 1.0 TAB ORAL DAILY Last Dose: July 20, 2024 1:00:0 0 AM [facility] [id number] on July 20, 2024 11:28:21 AM [facility] Active 8826385 33831 48542 0 Trulicity 0.75 mg/0.5 mL subcutaneous pen injector 0.75 MG SUBCUT ANEOUS QWEEK Last Dose: July 13, 2024 12:00: 00 PM [facility] [id number] on July 20, 2024 11:34:21 AM [facility] Active 9737037 12211 58868 1 Jardiance 25 mg tablet 1.0 TAB ORAL DAILY Last Dose: July 19, 2024 12:00: 00 PM [facility] [id number] on July 20, 2024 11:30:40 AM [facility] Active 901943 13146 72752 2 ranolazine ER 1,000 mg tablet,exten ded release,12 hr 1.0 TAB ORAL DAILY Last Dose: July 19, 2024 12:00: 00 PM [facility] [id number] on July 20, 2024 11:33:14 AM UT Active 155651 98236 94406 0 fenofibrate nanocrystall ized 48 mg tablet 1.0 TAB ORAL DAILY Last Dose: July 19, 2024 12:00: 00 PM [facility] [id number] on July 20, 2024 11:28:07 AM UT Active 620197 44667 34646 0 quetiapine 50 mg tablet 1.0 TAB ORAL DAILY Last Dose: July 20, 2024 1:00:0 0 AM [facility] [id number] on July 20, 2024 11:32:55 AM UT Active 277729 99476 57801 8 Ventolin HFA 90 mcg/actuatio n aerosol inhaler 2.0 PUF INHALA TION PRN Last Dose: July 19, 2024 12:00: 00 PM [facility] [id number] on July 20, 2024 11:35:09 AM UT Active 3919220 39384 07180 1 fluticasone propionate 50 mcg/actuatio n nasal spray,suspen joão 2.0 SPR NASAL DAILY Last Dose: July 19, 2024 12:00: 00 PM [facility] [id number] on July 20, 2024 11:28:48 AM [facility] Active 225397 43982 22696 5 ondansetron 4 mg disintegrati ng tablet 1.0 TAB ORAL PRN Last Dose: 2024 12:00: 00 AM [facility] [id number] on July 20, 2024 11:31:53 AM [facility] Active 252686 65483 42673 1 insulin lispro (U-100) 100 unit/mL subcutaneous solution 0.0 Last Dose: insulin pump [id number] on July 20, 2024 11:29:26 AM UT Active 9547014 99052 99069 2 azelastine 137 mcg (0.1 %) nasal spray 1.0 SPR NASAL PRN Last Dose: July 08, 2024 12:00: 00 PM [facility] [id number] on July 20, 2024 11:26:54 AM UT Active 465879 25934 62196 0 montelukast 10 mg tablet 1.0 TAB ORAL DAILY Last Dose: July 20, 2024 1:00:0 0 AM [facility] [id number] on July 20, 2024 11:31:02 AM [facility] Active 635006 10165 16779 5 nitroglyceri n 0.4 mg sublingual tablet 0.0 Last Dose: July 07, 2023 12:00: 00 AM [facility] [id number] on July 20, 2024 11:03:03 AM [facility] Active FreeT extMe d cyanocobalam in (vit B-12) 500 mcg tablet 1.0 TAB ORAL DAILY Last Dose: July 13, 2024 11:00: 00 PM [facility] [id number] on July 20, 2024 11:36:44 AM [facility] Active 4659233 97756 37475 6 potassium chloride ER 20 mEq tablet,exten ded release(part /cryst) 1.0 TAB ORAL DAILY Last Dose: July 20, 2024 1:00:0 0 AM [facility] [id number] on July 20, 2024 11:32:07 AM [facility] Active 256285 23563 88914 5 aspirin 81 mg tablet,delay ed release 1.0 TAB ORAL DAILY Last Dose: 2024 12:00: 00 PM [facility] [id number] on July 20, 2024 11:26:01 AM [facility] Active 483584 87588 53297 0 clopidogrel 75 mg tablet 1.0 TAB ORAL DAILY Last Dose: 2024 12:00: 00 PM [facility] [id number] on July 20, 2024 11:27:51 AM [facility] Active 556299 45245 03397 3 gabapentin 400 mg capsule 1.0 TAB ORAL TID Last Dose: July 20, 2024 1:00:0 0 AM [facility] [id number] on July 20, 2024 11:29:05 AM [facility] Active 785588 09801 21252 1 bumetanide 2 mg tablet 1.0 TAB ORAL TID Last Dose: July 20, 2024 1:00:0 0 AM [facility] [id number] on July 20, 2024 11:27:26 AM [facility] Active 1706161 56607 21441 0 ipratropium 0.5 mg-albuterol 3 mg (2.5 mg base)/3 mL nebulization soln 2.5 MG INHALA TION PRN Last Dose: July 09, 2024 12:00: 00 AM [facility] [id number] on July 20, 2024 11:30:25 AM [facility] Active 895744 69783 20704 0 atorvastatin 80 mg tablet 1.0 TAB ORAL DAILY Last Dose: July 20, 2024 1:00:0 0 AM [facility] [id number] on July 20, 2024 11:26:26 AM [facility] Active 648487 00956 16244 0 Omeprazole Oral Capsule Delayed Release 40 MG 1.0 TAB ORAL DAILY Last Dose: July 19, 2024 12:00: 00 PM [facility] [id number] on July 20, 2024 11:32:37 AM [facility] Active 817437 35487 75303 1 Bisoprolol Fumarate Oral Tablet 10 MG 1.0 TAB ORAL BID Last Dose: July 20, 2024 10:00: 00 AM [facility] [id number] on July 20, 2024 11:36:24 AM [facility] DISCHARGE MEDICATIONS Status RXNORM [facility] Medication Dose Route Frequency Dates Comments Physician Updated By Continue d [id number] [id number] 8002 101 bumetanide 2 mg tablet 1.0 TAB ORAL THREE TIMES A DAY Prescr ibed: July 20, 2024 2:19:2 3 PM UT TERE Boyd PHY [id number] on July 20, 2024 2:19:23 PM [facility] Continue d [id number] [id number] 201 oxyCODONE-A cetaminophe n Oral Tablet 5-325 MG 1.0 TAB ORAL EVERY EIGHT HOURS Prescr ibed: July 20, 2024 2:19:2 3 PM UT Take one tablet by mouth every 8 hours as needed for 4 days TERE Boyd PHY [id number] on July 20, 2024 2:19:23 PM UT Continue d [id number] 8958 3003 125 aspirin 81 mg tablet,alyssa yed release 1.0 TAB ORAL ONCE DAILY Prescr ibed: July 20, 2024 2:19:2 3 PM UT TERE Boyd PHY [id number] on July 20, 2024 2:19:23 PM [facility] Continue d [id number] 2358 9001 608 Ventolin HFA 90 mcg/actuati on aerosol inhaler 2.0 PUF INHALE D NEEDED Prescr ibed: July 20, 2024 2:19:2 3 PM [facility] TERE Boyd PHY [id number] on July 20, 2024 2:19:23 PM UTC Continue d [id number] 7386 8851 402 azelastine 137 mcg (0.1 %) nasal spray 1.0 SPR NASAL NEEDED Prescr ibed: July 20, 2024 2:19:2 3 PM UT TERE BARBEROD K PHY [id number] on July 20, 2024 2:19:23 PM UTC Continue d [id number] 1020 9000 410 atorvastati n 80 mg tablet 1.0 TAB ORAL ONCE DAILY Prescr ibed: July 20, 2024 2:19:2 3 PM UT DAVIDALTAF BARBEROD K PHY [id number] on July 20, 2024 2:19:23 PM UTC Continue d [id number] 781 Jardiance 25 mg tablet 1.0 TAB ORAL ONCE DAILY Prescr ibed: July 20, 2024 2:19:2 3 PM [facility] TERE OCHOA K PHY [id number] on July 20, 2024 2:19:23 PM UT Continue d [id number] 5411 4012 225 nitroglycer in 0.4 mg sublingual tablet 0.0 Prescr ibed: July 20, 2024 2:19:2 3 PM UT IDACARMITA OCHOA Deb PHY [id number] on July 20, 2024 2:19:23 PM UT Continue d [id number] 0081 032 Entresto 24 mg-26 mg tablet 1.0 TAB ORAL ONCE DAILY Prescr ibed: July 20, 2024 2:19:2 3 PM [facility] TERE OCHOA Deb PHY [id number] on July 20, 2024 2:19:23 PM UTC Continue d [id number] 3265 0645 300 Trulicity 0.75 mg/0.5 mL subcutaneou s pen injector 0.75 MG SUBCUT ANEOUS ONCE EACH WEEK Prescr ibed: July 20, 2024 2:19:2 3 PM UT TERE OCHOA K PHY [id number] on July 20, 2024 2:19:23 PM UTC Continue d [id number] 3498 5014 600 Omeprazole Oral Capsule Delayed Release 40 MG 1.0 TAB ORAL ONCE DAILY Prescr ibed: July 20, 2024 2:19:2 3 PM [facility] TERE Boyd PHY [id number] on July 20, 2024 2:19:23 PM UTC Continue d [id number] 4882 1002 202 ranolazine ER 1,000 mg tablet,exte nded release,12 hr 1.0 TAB ORAL ONCE DAILY Prescr ibed: July 20, 2024 2:19:2 3 PM [facility] TERE Boyd PHY [id number] on July 20, 2024 2:19:23 PM UTC Continue d [id number] 9757 2008 701 Bisoprolol Fumarate Oral Tablet 10 MG 1.0 TAB ORAL TWICE A DAY Prescr ibed: July 20, 2024 2:19:2 3 PM [facility] TERE Boyd PHY [id number] on July 20, 2024 2:19:23 PM UTC Continue d [id number] 9034 390 Allergy Relief (cetirizine ) 10 mg tablet 10.0 MG ORAL ONCE DAILY Prescr ibed: July 20, 2024 2:19:2 3 PM [facility] TERE Boyd PHY [id number] on July 20, 2024 2:19:23 PM UTC Continue d [id number] 2328 8002 665 ondansetron 4 mg disintegrat ing tablet 1.0 TAB ORAL NEEDED Prescr ibed: July 20, 2024 2:19:2 3 PM [facility] TERE Boyd PHY [id number] on July 20, 2024 2:19:23 PM UTC Continue d 883013 5848 9000 910 montelukast 10 mg tablet 1.0 TAB ORAL ONCE DAILY Prescr ibed: July 20, 2024 2:19:2 3 PM [facility] TERE Boyd PHY [id number] on July 20, 2024 2:19:23 PM UTC Continue d 836448 7064 3071 722 Advair HFA 230 mcg-21 mcg/actuati on aerosol inhaler 1.0 PUF INHALE D ONCE DAILY Prescr ibed: July 20, 2024 2:19:2 3 PM [facility] TERE Body PHY [id number] on July 20, 2024 2:19:23 PM UTC Continue d 593907 5533 9009 610 quetiapine 50 mg tablet 1.0 TAB ORAL ONCE DAILY Prescr ibed: July 20, 2024 2:19:2 3 PM UT IDAJOSYYANCY BARBEROD K PHY [id number] on July 20, 2024 2:19:23 PM UTC Continue d 712256 9038 3077 301 insulin lispro (U-100) 100 unit/mL subcutaneou s solution 0.0 Prescr ibed: July 20, 2024 2:19:2 3 PM UT IDAJOSYYANCY OCHOA K PHY [id number] on July 20, 2024 2:19:23 PM UTC Continue d 4587609 6614 4007 506 potassium chloride ER 20 mEq tablet,exte nded release(par t/cryst) 1.0 TAB ORAL ONCE DAILY Prescr ibed: July 20, 2024 2:19:2 3 PM UT IDAJOSYYANCY OCHOA K PHY [id number] on July 20, 2024 2:19:23 PM UTC Continue d 9923366 5946 5026 301 fluticasone propionate 50 mcg/actuati on nasal spray,suspe nsion 2.0 SPR NASAL ONCE DAILY Prescr ibed: July 20, 2024 2:19:2 3 PM UT IDAJOSYYANCY OCHOA K PHY [id number] on July 20, 2024 2:19:23 PM UTC Continue d 841223 5338 5005 090 fenofibrate nanocrystal lized 48 mg tablet 1.0 TAB ORAL ONCE DAILY Prescr ibed: July 20, 2024 2:19:2 3 PM UT IDAJOSYYANCY Boyd PHY [id number] on July 20, 2024 2:19:23 PM UTC Continue d 3251560 2436 4060 060 ipratropium 0.5 mg-albutero l 3 mg (2.5 mg base)/3 mL nebulizatio n soln 2.5 MG INHALE D NEEDED Prescr ibed: July 20, 2024 2:19:2 3 PM UT IDACARMITA DON K PHY [id number] on July 20, 2024 2:19:23 PM UTC Continue d 654392 8694 1000 503 gabapentin 400 mg capsule 1.0 TAB ORAL THREE TIMES A DAY Prescr ibed: July 20, 2024 2:19:2 3 PM UT TERE Boyd PHY [id number] on July 20, 2024 2:19:23 PM UT Continue d Free Text Med cyanocobala min (vit B-12) 500 mcg tablet 1.0 TAB ORAL ONCE DAILY Prescr ibed: July 20, 2024 2:19:2 3 PM UT TERE Boyd PHY [id number] on July 20, 2024 2:19:23 PM UT Continue d 898404 6637 9002 190 clopidogrel 75 mg tablet 1.0 TAB ORAL ONCE DAILY Prescr ibed: July 20, 2024 2:19:2 3 PM UT TERE Boyd PHY [id number] on July 20, 2024 2:19:23 PM UT INPATIENT MEDICATIONS Status RXNORM [facility] Medication Dose Route Frequency Rat e Quantity Dates Comments Physician Updated By Discont inued [id number] 8980 8011 704 LACTATED RINGERS SOLN 1000. 0 ML INTRAV ENOUS ONE TIME ONLY (PACU) 25.0 ML/HR Start: July 19, 2024 11:24: 00 AM UT End: July 20, 2024 2:19:2 3 PM UT DEPJeferson SINGH [id number] on July 21, 2024 4:25:00 AM UT Discont inued 1588491 0040 9117 630 meperidine (DEMEROL) 25 MG/ML SOLN 12.5 MG INTRAV ENOUS NEEDED (PACU) Start: July 19, 2024 11:24: 00 AM UTC End: July 20, 2024 2:19:2 3 PM UT DEPJeferson SINGH [id number] on July 21, 2024 4:25:00 AM UT Discont inued [id number] 0040 9117 630 meperidine (DEMEROL) 25 MG/ML SOLN 25.0 MG INTRAV ENOUS NEEDED (PACU) Start: July 19, 2024 11:24: 00 AM UTC End: July 20, 2024 2:19:2 3 PM UT DEPA FRANCISCO [id number] on July 21, 2024 4:25:00 AM UT Discont inued 0561326 6332 308 811 fentaNYL (SUBLIMAZE) 50 MCG/ML SOSY 25.0 MCG INTRAV ENOUS EVERY 5 MINUTES NEEDED (PACU) Start: July 19, 2024 11:24: 00 AM UTC End: July 20, 2024 2:19:2 3 PM UTC DEPJeferson SINGH [id number] on July 21, 2024 4:25:00 AM UTC Discont inued 4525403 6332 3080 811 fentaNYL (SUBLIMAZE) 50 MCG/ML SOSY 50.0 MCG INTRAV ENOUS EVERY 5 MINUTES NEEDED (PACU) Start: July 19, 2024 11:24: 00 AM UTC End: July 20, 2024 2:19:2 3 PM UTC DEPA FRANCISCO [id number] on July 21, 2024 4:25:00 AM UTC Discont inued 5868598 7023 9426 401 HYDROmorpho ne (DILAUDID) 0.5 MG/0.5ML SOLN 0.5 MG INTRAV ENOUS EVERY 10 MINUTES NEEDED (PACU) Start: July 19, 2024 11:24: 00 AM UTC End: July 20, 2024 2:19:2 3 PM UTC DEPJeferson SINGH [id number] on July 21, 2024 4:25:00 AM UTC Discont inued [id number] 4872 9426 401 HYDROmorpho ne (DILAUDID) 0.5 MG/0.5ML SOLN 1.0 MG INTRAV ENOUS EVERY 10 MINUTES NEEDED (PACU) Start: July 19, 2024 11:24: 00 AM UTC End: July 20, 2024 2:19:2 3 PM UTC YARIZTA SINGH [id number] on July 21, 2024 4:25:00 AM UTC Discont inued 4853784 9377 8010 250 PERCOCET 5-325 MG TABS 1.0 TAB ORAL ONE TIME ADMINISTRA TION (UNSCHEDUL ED) Start: July 19, 2024 11:24: 00 AM UTC End: July 20, 2024 2:19:2 3 PM UTC DEPJeferson FRANCISCO [id number] on July 21, 2024 4:25:00 AM UTC Discont inued 6039511 9207 5613 000 ondansetron (ZOFRAN) INJ 4 MG/2 ML SOLN 4.0 MG INTRAV ENOUS NEEDED (PACU) Start: July 19, 2024 11:24: 00 AM UTC End: July 20, 2024 2:19:2 3 PM UTC DEPA FRANCISCO [id number] on July 21, 2024 4:25:00 AM UTC Discont inued 6938873 0051 7970 201 droperidol (INAPSINE) 2.5 MG/ML SOLN 0.625 MG INTRAV ENOUS NEEDED (PACU) Start: July 19, 2024 11:24: 00 AM UTC End: July 20, 2024 2:19:2 3 PM UTC DEPA FRANCISCO [id number] on July 21, 2024 4:25:00 AM UTC Discont inued 7213704 0962 3041 112 midazolam (VERSED) 2 MG/2 ML SOLN 1.0 MG INTRAV ENOUS EVERY FIVE MINUTES NEEDED Start: July 19, 2024 11:24: 00 AM UTC End: July 20, 2024 2:19:2 3 PM UTC DEPA FRANCISCO [id number] on July 21, 2024 4:25:00 AM UTC Discont inued 6330595 2394 3041 112 midazolam (VERSED) 2 MG/2 ML SOLN 2.0 MG INTRAV ENOUS NEEDED (PACU) Start: July 19, 2024 11:24: 00 AM UTC End: July 20, 2024 2:19:2 3 PM UTC DEPA FRANCISCO [id number] on July 21, 2024 4:25:00 AM UTC Discont inued 555853 8975 1092 825 promethazin e (PHENERGAN) 25 MG/ML SOLN 12.5 MG INTRAV ENOUS NEEDED (PACU) Start: July 19, 2024 11:24: 00 AM UTC End: July 20, 2024 2:19:2 3 PM UTC DEPA FRANCISCO [id number] on July 21, 2024 4:25:00 AM UTC Discont inued XXXX XXX0 011 promethazin e (PHENERGAN) 12.5 MG GEL 12.5 MG TOPICA L NEEDED (PACU) Start: July 19, 2024 11:24: 00 AM UTC End: July 20, 2024 2:19:2 3 PM UTC DEPA FRANCISCO [id number] on July 21, 2024 4:25:00 AM UTC Discont inued 0948402 0014 3914 025 ceFAZolin (ANCEF) 3 GM SOLR 3.0 GM INTRAV ENOUS ONE TIME ADMINISTRA TION (UNSCHEDUL ED) 200.0 ML/HR Start: July 20, 2024 10:54: 00 AM UTC End: July 20, 2024 10:57: 57 AM UTC DANNY Flores [id number] on July 20, 2024 11:03:00 AM UTC Discont inued 8549046 0611 9710 167 sodium chloride 0.9% SOLN 100.0 ML INTRAV ENOUS ONE TIME ADMINISTRA TION (UNSCHEDUL ED) 200.0 ML/HR Start: July 20, 2024 10:54: 00 AM UTC End: July 20, 2024 10:57: 56 AM UT DANNY Flores [id number] on July 20, 2024 11:03:00 AM UTC Discont inued 141231 5671 1329 009 clindamycin (CLEOCIN) IN D5W 900 MG/50 ML SOLN 900.0 MG INTRAV ENOUS ONE TIME ADMINISTRA TION (UNSCHEDUL ED) 100.0 ML/HR Start: July 20, 2024 10:58: 00 AM UTC End: July 20, 2024 12:04: 35 PM UT DANNY Flores [id number] on July 20, 2024 12:04:00 PM UTC Discont inued 4081673 7798 5034 542 propofol (DIPRIVAN) 500 MG/50ML EMUL 500.0 MG INTRAV ENOUS ONE TIME ONLY (SCHEDULED DOSE) Start: July 20, 2024 12:55: 00 PM UTC End: July 20, 2024 12:55: 00 PM UTC MUNISWAMY DON K INTERFAC ED on July 20, 2024 12:54:00 PM UTC Discont inued 1146395 0861 9909 332 PACU - fentaNYL (SUBLIMAZE) 100 MCG/2ML SOLN 100.0 MCG INTRAV ENOUS ONE TIME ONLY (SCHEDULED DOSE) Start: July 20, 2024 1:21:0 0 PM UTC End: July 20, 2024 1:21:0 0 PM UTC MUNISWAMY DON K INTERFAC ED on July 20, 2024 1:20:00 PM UTC Discont inued 6222546 8065 3028 420 vancomycin (VANCOCIN) 1000 MG SOLR 1000. 0 MG INTRAV ENOUS ONE TIME ONLY (SCHEDULED DOSE) Start: July 20, 2024 1:53:0 0 PM UTC End: July 20, 2024 1:53:0 0 PM UTC MUNISWAMY DON K INTERFAC ED on July 20, 2024 1:52:00 PM UTC Discont inued 320805 4637 8011 704 LACTATED RINGERS SOLN 1000. 0 ML IV CONTIN UOUS ONE TIME ONLY (SCHEDULED DOSE) Start: July 20, 2024 2:02:0 0 PM UTC End: July 20, 2024 2:02:0 0 PM UTC MUNISWAMY DON K INTERFAC ED on July 20, 2024 4:00:00 AM UTC SOCIAL HISTORY SOCIAL HISTORY SNOMED-CT Social History Element Description Effective Dates Offered Cessation Comment UpdatedBy [id number] Current Tobacco smoking status Current Every Day Smoker [id number] on July 20, 2024 11:37:53 AM UT SOCIAL HISTORY - Gender Sex: Male SOCIAL HISTORY - Status : status i nformation is not available Intention in Next Year: intention information is not available SOCIAL HISTORY - Sexual Behavior Sexual Orientation Gender Identity SNOMED-CT Description SNO MED -CT Description Activity Level No of Partners Partner Type UpdatedBy Information is not available VITAL SIGNS PATIENT VITAL SIGNS This section displays the mo st recent value for each vital sign as of July 22, 2024 2:28:38 PM UT Loinc Code Vital Sign Activity Date Result Updated By 8302-2 Body height July 20, 2024 11:38:44 AM UTC 175.26 cm (69.0 in) [id number] on July 20, 2024 11:38:[place] [address]-9 Body mass index (BMI) [Ratio] July 20, 2024 11:38:44 AM UTC 42.193 kg/m2 [id number] on July 20, 2024 11:38:44 AM UT 3140-1 Body Surface Area Derived From Formula July 20, 2024 11:38:44 AM UTC 2.4038 m2 [id number] on July 20, 2024 11:38:[place] [address]-1 Body weight Measured July 20 11:38:44 AM UTC 129.6 kg (286.0 lb) [id number] on July 20, 2024 11:38:44 AM [facility] PEDIATRIC GROWTH CHART - VITAL SIGNS This section displays Head C ircumference Percentile, Weight for Length Percentile and BMI Percentile Loinc Code Pediatric Measure Age (Months) Result Updat ed By No Pediatric Growth Chart Pe rcentile Information Available. PROCEDURES HEALTH CONCERNS Problems Concern Status Health Concern problem infor mation not available. Smoking Status Status Years Used Consumed packs p er day Health Concern smoking histo ry information not available. Family History Concern Status Health Concern family histor y information not available. MEDICAL EQUIPMENT MEDICAL EQUIPMENT Device Status Quantity Dates Procedure Comments Updated By Implantable lumbar neuromuscular electrical stimulation system lead FRED: [id number] Assigning Authority: FDA Device Identifier:[id number] Serial Number:[id number] Expiration Date:2025-11-12 ACTIVE 1 Implanted: February 03, 2024 Implantation of permanent spinal cord stimulator [id number] on February 03, 2024 9:09:16 PM [facility] Implantable lumbar neuromuscular electrical stimulation system lead FRED: ()[id number] Assigning Authority: FDA Device Identifier:[id number] Serial Number:[id number] Expiration Date:2025-10-10 ACTIVE 1 Implanted: February 03, 2024 Implantation of permanent spinal cord stimulator [id number] on February 03, 2024 9:09:44 PM [facility] Implantable lumbar neuromuscular electrical stimulation system pulse generator FRED: ()[id number] Assigning Authority: FDA Device Identifier:[id number] Serial Number:[id number] Expiration Date:2025-11-13 ACTIVE 1 Implanted: February 03, 2024 Implantation of permanent spinal cord stimulator [id number] on February 03, 2024 9:15:40 PM [facility] Catheter/tube guerrero FRED: [id number] Assigning Authority: FDA Device Identifier:[id number] Lot or Batch Number:[id number] Expiration Date:2025-11-09 ACTIVE 2 Implanted: February 03, 2024 Implantation of permanent spinal cord stimulator [id number] on February 03, 2024 9:16:07 PM [facility] ENCOUNTERS ENCOUNTER INFORMATION Reason for Visit SCS EXPLANT Admission July 20, 2024 10:57:00 AM [facility] [place] [id number] [address] Discharge July 20, 2024 6:57:00 PM [facility] DISC HARGED TO HOME OR SELF CARE ENCOUNTER DIAGNOSES Notes information is not dennis ilable. Code System Diagnosis Onset Date Diagnosis information is not available. ABSTRACT DIAGNOSES Code System Diagnosis Updated By M96.1 ICD10 POSTLAMINECTOMY SYNDROME, NOT ELSEWHERE CLASSIFIED [id number] on July 22, 2024 2:28:05 PM [facility] M96.1 ICD10 POSTLAMINECTOMY SYNDROME, NOT ELSEWHERE CLASSIFIED [id number] on July 22, 2024 2:28:05 PM [facility] T81.31XA ICD10 DISRUPTION OF EX TERNAL OPERATION (SURGICAL) WOUND, NOT ELSEWHERE CLASSIFIED, INITIAL ENCOUNTER [id number] on July 22, 2024 2:28:05 PM [facility] I25.2 ICD10 OLD MYOCARDIAL INFARCTION AA [id number] on July 22, 2024 2:28:05 PM [facility] I25.10 ICD10 ATHEROSCLEROTIC HEART DISEASE OF [place] CORONARY ARTERY WITHOUT ANGINA PECTORIS [id number] on July 22, 2024 2:28:05 PM [facility] I10 ICD10 ESSENTIAL (PRIMARY) HYPERTEN JOÃO [id number] on July 22, 2024 2:28:05 PM [facility] E78.5 ICD10 HYPERLIPIDEMIA, UNSPECIFIED [id number] on July 22, 2024 2:28:05 PM [facility] J45.909 ICD10 UNSPECIFIED ASTHMA, UNCOMPLI CATED [id number] on July 22, 2024 2:28:05 PM [facility] G47.30 ICD10 SLEEP APNEA, UNSPECIFIED AAD 6617 on July 22, 2024 2:28:05 PM [facility] K21.9 ICD10 GASTRO-ESOPHAGEA L REFLUX DISEASE WITHOUT ESOPHAGITIS [id number] on July 22, 2024 2:28:05 PM [facility] E66.01 ICD10 MORBID (SEVERE) OBESITY DUE TO EXCESS CALORIES [id number] on July 22, 2024 2:28:05 PM [facility] Z68.41 ICD10 BODY MASS INDEX [BMI] 40.0-4 4.9, ADULT [id number] on July 22, 2024 2:28:05 PM [facility] M19.90 ICD10 UNSPECIFIED OSTE OARTHRITIS, UNSPECIFIED SITE [id number] on July 22, 2024 2:28:05 PM [facility] M25.50 ICD10 PAIN IN UNSPECIFIED JOINT AA [id number] on July 22, 2024 2:28:05 PM [facility] Z86.73 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), AND CEREBRAL INFARCTION WITHOUT RESIDUAL DEFICITS [id number] on July 22, 2024 2:28:05 PM [facility] E11.9 ICD10 TYPE 2 DIABETES MELLITUS WITHOUT COMPLICATIONS [id number] on July 22, 2024 2:28:05 PM [facility] Z79.84 ICD10 SENIOR HR BUSINESS PARTNER (CURRE NT) USE OF ORAL HYPOGLYCEMIC DRUGS [id number] on July 22, 2024 2:28:05 PM [facility] Z79.82 ICD10 SHELTER (CURRENT) USE OF A SPIRIN [id number] on July 22, 2024 2:28:05 PM [facility] Z79.899 ICD10 OTHER SHELTER (CURRENT) DR LEXY TOLLIVER [id number] on July 22, 2024 2:28:05 PM [facility] Z88.5 ICD10 ALLERGY STATUS TO NARCOTIC A GENT [id number] on July 22, 2024 2:28:05 PM [facility] Z88.8 ICD10 ALLERGY STATUS T O OTHER DRUGS, MEDICAMENTS AND BIOLOGICAL SUBSTANCES [id number] on July 22, 2024 2:28:05 PM [facility] Z88.0 ICD10 ALLERGY STATUS TO PENICILLIN [id number] on July 22, 2024 2:28:05 PM [facility] CARE TEAM Care Olive Grower Role DEFINED NO Primary Care DEFINED NO Referring DON HERRERA Admitting DON HERRERA Primary Attending DON HERRERA [facility] HOSPITAL DISCHARGE INSTRUCTION DISCHARGE INSTRUCTION Encounter [id number] Admit Date July 20, 2024 10:57:0 0 AM [facility] Discharge Date July 20, 2024 6:57:00 PM [facility] PATIENT EDUCATION SUMMARY Patient/Visit Information: Patient Name: JOSUE MELTON Diag: Attending Caregiver: TERE Boyd Discharge Instruction Sheets Provided: Anesthesia, [facility] DC Instructions After BEFAST-Stroke Warning Signs COVID-19 CDC-EN Discharge Information Dr. 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 Role on Team Status Start Date End Date Update d By TERE MCGREGOR Surgeon normal July 20, 2024 10:57:00 AM UTC July 20, 2024 6:57:00 PM UTC [id number] on July 22, 2024 2:28:12 PM UTC NO DEFINED PRIMARY C Referring normal July 19, 2024 5:55:51 PM UTC July 20, 2024 6:57:00 PM UTC [id number] on July 22, 2024 2:28:12 PM UT NO DEFINED PRIMARY C PCP normal 2024 7:43:13 PM UTC July 20, 2024 6:57:00 PM UTC [id number] on July 22, 2024 2:28:12 PM UT TERE MCGREGOR Attending normal 2024 7:43:13 PM UTC July 20, 2024 6:57:00 PM UTC [id number] on July 22, 2024 2:28:12 PM UT TERE MCGREGOR Admitting normal 2024 7:43:13 PM UTC July 20, 2024 6:57:00 PM UTC [id number] on July 22, 2024 2:28:12 PM UT
--- OUTSIDE RECORDS SUMMARY | 2024-07-26 14:00 | XMS_ITS | Encounter Summary ---
Author Organization [employer] ([place], [place], [place], [place]) Address [address] [place] [address] Care Team Providers Care Engagement Quality Consultant Name Role Phone Joel Dhillon MD Primary Care Provider [phone] Reason for Visit * Reason Comments Injections Encounter Details Date Type Department Care Team (Late st Contact Info) Description 07/26/2024 2:00 PM EDT Infusion [facility] Outpatient Infusion [address] [place] [phone] CVD (cardiovascular disease) (Primary Dx) Social History Tobacco Use Types Packs/Day Years Used Date Smoking Tobacco: Every Day Cigarettes 1 35 Smokeless Tobacco: Never Comments:Working on quitting Alcohol Use Standard Drinks/Week Comments Not Currently 0 (1 standard drink = 0.6 oz pur e alcohol) Caffeine Use Family and Community Support Answer Kenn e Recorded Help with Day to Day Activities Not on file 02/27/2023 Feeling Lonely or Isolated Not on file 02/27 Educational Attainment Answer Date Troy rded Speak language other than Botswanan at home Not on file 02/27/2023 Want help with school or training Not on file 02/27/2023 Substance Use Answer Date Recorded Used prescription meds for non-medical reasons N ot on file 02/27/2023 Used illegal drugs past 12 months Not on file 02/27/2023 Sex and Gender Information Value Date Recorded Sex Assigned at Male 03/20/2022 6:49 PM [employer] Legal Sex Male 5:35 PM CDT Gender Identity Male 03/20/2022 6:49 PM [employer]EE T[employer]ER Sexual Orientation Straight 03/20/2022 6: 49 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 But had to be rescheduled due to out of date auth. documented in this encounter Plan of Treatment Upcoming Encounters Date Type Department Care Team (Late st Contact Info) Description 09/09/2024 3:30 PM EDT Infusion [facility] Outpatient Infusion [address] [place] [address] 09/15/2024 1:15 PM EDT Office Visit [facility] Cardiology - [place] [address] [place] [address] Karlos Milton MD [address] [facility] [address] [place] [address] 02/21/2025 3:00 PM EST Infusion [facility] Outpatient Infusion [address] [place] [address] documented as of this encounter Visit Diagnoses Diagnosis CVD (cardiovascular disease)- Primary Unspecified cardiovascular disease documented in this encounter Care Teams Engagement Quality Consultant Relationship Specialty Start Date End Date Joel Dhillon MD [address] [place] [address] PCP - General Internal Medicine 09/15/23 documented as of this encounter
--- OUTSIDE RECORDS SUMMARY | 2024-08-18 12:55 | XMS_ITS | Referral Summary ---
Author Organization [employer] ([place], [place], [place], [place]) Address [address] [place] [address] Care Team Providers Care Over The Road Driver Name Role Phone Joel Dhillon MD Primary Care Provider [phone] Encounters Date Type Department Care Team Description 08/13/[address] [address] Karlos Milton MD Acute on chronic diastolic heart failure (HCC) 07/26/2024 Travel 07/26/2024 2:00 PM EDT Infusion [facility] [address] [place] [address] CVD (cardiovascular disease) (Primary Dx) [address] [address] Karlos Milton MD 06/15/[address] [address] Karlos Milton MD Mixed hyperlipidemia 05/27/2024 Orders Only [address] [address] Rosie Sofia CMA Acute on chronic diastolic heart failure (HCC) (Primary Dx) 05/24/[address] [address] Karlos Milton MD 05/19/2024 Refill [facility] [address] [address] Karlos Milton MD Acute on chronic diastolic heart failure (HCC) from Last 3 Months Allergies Active Allergy Reactions Criticality Noted Date Comments Ampicillin Hives High 12/19/2021 Lisinopril 12/14/2021 Other reaction(s): Spasmodic cough Penicillin Hives High 12/14/2021 Medications aspirin 81 MG EC tablet Take 1 tablet (81 mg total) by mouth daily. Active bumetanide (BUMEX) 2 MG tablet Take 1 tablet (2 mg total) by mouth 2 (two) times daily. Active gabapentin (NEURONTIN) 400 MG capsule Take 1 capsule (400 mg total) by mouth 3 (three) times daily. Active montelukast (SINGULAIR) 10 mg tablet Take 1 tablet (10 mg total) by mouth nightly. Active nitroglycerin (NITROSTAT) 0.[address] 1 tablet (0.4 mg total) under the tongue every 5 (five) minutes as needed Put 1 pill under tongue every 5min as needed for chest pain.No more than 3 doses in 15min.Call 911 if pain unrelieved 5min after 1st dose. Active levocetirizine (XYZAL) 5 MG tablet Take 1 tablet (5 mg total) by mouth every evening. Active fluticasone propionate (FLONASE) 50 mcg/actuation nasal spray 2 sprays daily. 022 Active ergocalciferol (ERGOCALCIFEROL) 1,250 mcg (50,000 unit) capsule Take 1 capsule (50,000 Units total) by mouth once a week. 023 Active clopidogreL (PLAVIX) 75 mg tablet Take 1 tablet by mouth once daily 90 tablet 023 Active azelastine (ASTELIN) 137 mcg (0.1 %) nasal spray USE 2 SPRAY(S) IN EACH NOSTRIL AT BEDTIME NIGHTLY 023 Active Accu-Chek Guide test strips Strp USE 1 STRIP TO CHECK GLUCOSE THREE TIMES DAILY 023 Active Advair HFA 230-21 mcg/actuation inhaler 1 puff 2 (two) times daily. Active Accu-Chek Fastclix Lancet Drum Misc Apply topically. Active ipratropium-albut Cass (DUO-NEB) 0.5 mg-3 mg(2.5 mg base)/3 mL nebulizer solution 3 mLs 4 (four) times daily as needed. Active insulin lispro (HumaLOG) 100 unit/mL injection Inject subcutaneously. Active Ventolin HFA 90 mcg/actuation inhaler 1 puff every 6 (six) hours as needed. Active Ozempic 1 mg/dose (4 mg/3 mL) PnIj Inject 1 mg subcutaneously once a week. Active sildenafiL (Viagra) 50 MG tabletIndications :Erectile dysfunction, unspecified erectile dysfunction type Take 1 tablet (50 mg total) by mouth daily as needed for erectile dysfunction. 20 tablet Active Jardiance 25 mg tablet TAKE 1 TABLET BY MOUTH ONCE DAILY 30 tablet Active fenofibrate (TRICOR) 48 MG tablet TAKE 1 TABLET BY MOUTH ONCE DAILY 30 tablet Active bisoprolol (ZEBETA) 5 MG tabletIndications :Hypertension, unspecified type TAKE 1 TABLET BY MOUTH TWICE DAILY 60 tablet Active QUEtiapine (SEROquel) 50 MG tablet TAKE 1 TABLET BY MOUTH NIGHTLY 30 tablet Active Allergy Relief, cetirizine, 10 mg tablet Take 1 tablet (10 mg total) by mouth daily. Active atorvastatin (LIPITOR) 80 MG tablet TAKE 1 TABLET BY MOUTH EVERY MORNING 30 tablet Active sacubitriL-valsar salazar (Entresto) 24-26 mg tabletIndications :Acute on chronic diastolic heart failure (HCC) Take 1 tablet by mouth 2 (two) times daily for 90 days. 180 tablet 2024 Active icosapent ethyL (VASCEPA) 1 gram cap capsuleIndication s:Mixed hyperlipidemia TAKE 2 CAPSULES BY MOUTH TWICE DAILY 120 capsule Active potassium chloride (KLOR-CON) 20 MEQ tablet TAKE 1 TABLET BY MOUTH ONCE DAILY 90 tablet 1 025 Active ranolazine (RANEXA) 1,000 mg SR tabletIndications :Acute on chronic diastolic heart failure (HCC) TAKE 1 TABLET BY MOUTH TWICE DAILY 180 tablet 11 025 Active omeprazole (PriLOSEC) 40 MG capsule TAKE 1 CAPSULE BY MOUTH DAILY 30 capsule 11 025 Active omeprazole (PriLOSEC) 40 MG capsule TAKE 1 CAPSULE BY MOUTH DAILY 30 capsule 10 024 2024 Discontinued ranolazine (RANEXA) 1,000 mg SR tabletIndications :Acute on chronic diastolic heart failure (HCC) Take 1 tablet (1,000 mg total) by mouth 2 (two) times daily for 90 days. 180 tablet 025 2024 Discontinued Active Problems Problem Noted Date Diagnosed Date CVD (cardiovascular disease) 10/14/2023 Cryptogenic stroke 05/09/2023 History of obstructive sleep apnea 12/19/2021 Stented coronary artery 12/19/2021 Morbid obesity 12/19/2021 JOSE (obstructive sleep apnea) 12/19/2021 Overview (06/19/2023): Last Assessment & Plan: Baseline AHI 97. This is very severe sleep apnea. He is on BiPAP therapy. I have reviewed and interpreted the download showing good control and good compliance. He is benefiting from BiPAP therapy and we plan to continue BiPAP therapy. Prescription for BiPAP supplies to the DME of his choice. Plan follow-up in 1 year or sooner for any JOSE or PAP concerns. 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 07/18/2016 High blood pressure 05/18/2008 Bradycardia BiPAP (biphasic positive airway pressure) depend ence Social History Tobacco Use Types Packs/Day Years Used Date Smoking Tobacco: Every Day Cigarettes 1 35 Smokeless Tobacco: Never Tobacco Cessation:Ready to Q uit: Yes; Counseling Given: Not Answered Comments:Working on quitting Alcohol Use Standard Drinks/Week Comments Not Currently 0 (1 standard drink = 0.6 oz pur e alcohol) Caffeine Use Family and Community Support Answer Kenn e Recorded Help with Day to Day Activities Not on file 02/27/2023 Feeling Lonely or Isolated Not on file 02/27 Educational Attainment Answer Date Troy rded Speak language other than Belarusian at home Not on file 02/27/2023 Want help with school or training Not on file 02/27/2023 Substance Use Answer Date Recorded Used prescription meds for non-medical reasons N ot on file 02/27/2023 Used illegal drugs past 12 months Not on file 02/27/2023 Sex and Gender Information Value Date Recorded Sex Assigned at Male 03/20/2022 6:49 PM DETAIL DRAFTER Legal Sex Male 5:35 PM CDT Gender Identity Male 03/20/2022 6:49 PM DETAIL DRAFTER Sexual Orientation Straight 03/20/2022 6: 49 PM DETAIL DRAFTER Last Filed Vital Signs Vital Sign Reading Time Taken Comments Blood Pressure 128/78 03/17/2024 1:47 PM EST Pulse 65 03/17/2024 1:47 PM EST Temperature 36.6 C (97.9 F) 01/23/2024 12:38 PM EST Respiratory Rate 20 03/17/2024 1:47 PM EST Oxygen Saturation 94% 03/17/2024 1:47 PM EST Inhaled Oxygen Concentration - - Weight 121.6 kg (268 lb) 03/17/2024 1:47 PM EST Height 175.3 cm (5' 9 ) 03/17/2024 1:47 PM EST Body Mass Index 39.58 03/17/2024 1:47 PM EST Plan of Treatment Upcoming Encounters Date Type Department Care Team (Late st Contact Info) Description 09/09/2024 3:30 PM EDT Infusion [facility] [address] [place] [address] 09/15/2024 1:15 PM EDT Office Visit [facility] - [place] [address] [place] [address] Karlos Milton MD [address] [facility] [address] [place] [address] 02/21/2025 3:00 PM EST Infusion [facility] [address] [place] [address] Medical Devices Implanted Type Area Lathe Mechanic Device Identifier Shelf Expiration Date Model / Serial / Lot Stent Cor [place] Front [id number] IMPLANTS [employer]:VASCULA R 08/23/2024 [id number] / / Stent Cor [place] Front [id number] IMPLANTS [employer]:VASCULA R 08/16/2023 [id number] / / Procedures Procedure Name Priority Date/Time Associated Diagnosis Comments HEMOGLOBIN A1C Routine 02/18/2023 3:33 PM EST Type 2 diabetes mellitus with other specified complication, unspecified whether alf insulin use (HCC) LIPID PANEL Routine 02/18/2023 3:33 PM EST Mixed hyperlipidemia from Last 3 Months or Most Recently Relevant to Health Maintenance Results * (ABNORMAL) Hemoglobin A1c (02/18/2023 3:33 PM EST) Hemoglobin A1c 7.3(H) 4.8 - 5.6 % [facility] Comment: Prediabetes: 5.7 - 6.4 Diabetes: >6.4 Glycemic control for adults with diabetes: <7.0 Blood 02/18/2023 3:33 PM EST 02/18/2023 Narrative [facility] - 02/19/2023 5:06 AM EST Performed at: - [facility] [id number] Coil Connector: Abdiel Goncalves PhD, Phone: [phone] us Cherelle Johnson PRESS OPERATOR AUTOMATIC LAB BLOOD ORDERABLES Final Res ult [facility] * (ABNORMAL) Lipid panel (02/18/2023 3:33 PM EST) Cholesterol, Total 160 100 - 199 mg/dL [facility] Triglycerides 227(H) 0 - 149 mg/dL [facility] HDL Cholesterol 27(L) >39 mg/dL [facility] VLDL Cholesterol Jerrod 39 5 - 40 mg/dL [facility] LDL Calculated 94 0 - 99 mg/dL [facility] Blood 02/18/2023 3:33 PM EST 02/18/2023 Narrative [facility] - 02/19/2023 5:06 AM EST Performed at: 01 - [facility] [address] [id number] Coil Connector: Abdiel Goncalves PhD, Phone: [phone] us Cherelle Johnson PRESS OPERATOR AUTOMATIC LAB BLOOD ORDERABLES Final Res ult [facility] from Last 3 Months or Most Recently Relevant to Health Maintenance Insurance Advance Directives For more information, please contact: [phone] Documents on File Type Date Recorded Patient Geology Professor Expl anation Advance Directives and Livin g Will 03/22/2022 6:16 AM * Full Code (Latest Code Status on File) Date Activated Date Inactivated Comments 03/22/2022 6:00 AM 03/23/2022 4:52 AM Care Teams Over The Road Driver Relationship Specialty Start Date End Date Joel Dhillon MD [address] [place] [id number] PCP - General Internal Medicine 09/15/23
--- OUTSIDE RECORDS SUMMARY | 2024-08-18 12:55 | XMS_ITS | Encounter Summary ---
Author Organization [employer] ([place], [place], [place], [place]) Address [address] [place] [address] Care Team Providers Care Land Checker Name Role Phone Joel Dhillon MD Primary Care Provider [phone] Reason for Visit * Reason Comments Medication Refill Encounter Details Date Type Department Care Team (Late st Contact Info) Description 2024 Refill [facility] Cardiology - [place] [address] [place] [address] Karlos Milton MD [address] [facility] [address] [place] [address] Social History Tobacco Use Types Packs/Day Years [...] Date Troy rded Speak language other than Polish at home Not on file 02/27/2023 Want help with school or training Not on file 02/27/2023 Substance Use Answer Date Recorded Used prescription meds for non-medical reasons N ot on file 02/27/2023 Used illegal drugs past 12 months Not on file 02/27/2023 Sex and Gender Information Value Date Recorded Sex Assigned at Male 03/20/2022 6:49 PM DEPUTY REGISTER OF DEEDS Legal Sex Male 5:35 PM CDT Gender Identity Male 03/20/2022 6:49 PM DEPUTY REGISTER OF DEEDS Sexual Orientation Straight 03/20/2022 6: 49 PM DEPUTY REGISTER OF DEEDS documented as of this encounter Plan of Treatment Upcoming Encounters Date Type Department Care Team (Late st Contact Info) Description 09/09/2024 3:30 PM EDT Infusion [facility] [address] [place] [address] 09/15/2024 1:15 PM EDT Office Visit [facility] - [place] [address] [place] [address] Karlos Milton MD [address] [facility] [address] [place] [address] 02/21/2025 3:00 PM EST Infusion [facility] [address] [place] [address] documented as of this encounter Visit Diagnoses Not on filedocumented in this encounter Care Teams Land Checker Relationship Specialty Start Date End Date Joel Dhillon MD [address] [place] [address] PCP - General Internal Medicine 09/15/23 documented as of this encounter
--- OUTSIDE RECORDS SUMMARY | 2024-08-18 12:55 | XMS_ITS | Encounter Summary ---
Author Organization [employer] ([place], [place], [place], [place]) Address [address] [place] [address] Care Team Providers Care Thiokol Operator Name Role Phone Joel Dhillon MD Primary Care Provider [phone] Encounter Details Date Type Department Care Team (Latest Contact Info) Description 07/26/2024 Travel Social History Tobacco Use Types Packs/Day Years [...] Date Troy rded Speak language other than Latvian at home Not on file 02/27/2023 Want help with school or training Not on file 02/27/2023 Substance Use Answer Date Recorded Used prescription meds for non-medical reasons N ot on file 02/27/2023 Used illegal drugs past 12 months Not on file 02/27/2023 Sex and Gender Information Value Date Recorded Sex Assigned at Male 03/20/2022 6:49 PM LIFE SKILLS INSTRUCTOR Legal Sex Male 5:35 PM CDT Gender Identity Male 03/20/2022 6:49 PM LIFE SKILLS INSTRUCTOR Sexual Orientation Straight 03/20/2022 6: 49 PM LIFE SKILLS INSTRUCTOR documented as of this encounter Plan of Treatment Upcoming Encounters Date Type Department Care Team ( Contact Info) Description 09/09/2024 3:30 PM EDT Infusion [facility] [address] [place] [address] 09/15/2024 1:15 PM EDT Office Visit [facility] - [place] [address] [place] [address] Karlos Milton MD [address] [facility] [address] [place] [address] 02/21/2025 3:00 PM EST Infusion [facility] [address] [place] [address] documented as of this encounter Visit Diagnoses Not on filedocumented in this encounter Care Teams Thiokol Operator Relationship Specialty Start Date End Date Joel Dhillon MD [address] [place] [address] PCP - General Internal Medicine 09/15/23 documented as of this encounter
--- OUTSIDE RECORDS SUMMARY | 2024-08-18 12:56 | XMS_ITS | Encounter Summary ---
Author Organization [employer] ([place], [place], [place], [place]) Address [address] [place] [address] Care Team Providers Care Station Worker Name Role Phone Joel Dhillon MD Primary Care Provider [phone] Reason for Visit * Reason Comments Medication Refill Encounter Details Date Type Department Care Team (Late st Contact Info) Description 08/13/2024 Refill [facility] - [place] [address] [place] [address] Karlos Milton MD [address] [facility] [address] [place] [address] Acute on chronic diastolic heart failure (HCC) Social History Tobacco Use Types Packs/Day Years [...] Date Troy rded Speak language other than Welsh at home Not on file 02/27/2023 Want help with school or training Not on file 02/27/2023 Substance Use Answer Date Recorded Used prescription meds for non-medical reasons N ot on file 02/27/2023 Used illegal drugs past 12 months Not on file 02/27/2023 Sex and Gender Information Value Date Recorded Sex Assigned at Male 03/20/2022 6:49 PM STEAM CRANE OPERATOR Legal Sex Male 5:35 PM CDT Gender Identity Male 03/20/2022 6:49 PM STEAM CRANE OPERATOR Sexual Orientation Straight 03/20/2022 6: 49 PM STEAM CRANE OPERATOR documented as of this encounter Plan of Treatment Upcoming Encounters Date Type Department Care Team (Late st Contact Info) Description 09/09/2024 3:30 PM EDT Infusion [facility] [address] [place] [address] 09/15/2024 1:15 PM EDT Office Visit [facility] - [place] [address] [place] [address] Karlos Milton MD [address] [facility] [address] [place] [address] 02/21/2025 3:00 PM EST Infusion [facility] [address] [place] [address] documented as of this encounter Visit Diagnoses Diagnosis Acute on chronic diastolic heart failure (HCC) Acute on chronic diastolic heart failure documented in this encounter Care Teams Station Worker Relationship Specialty Start Date End Date Jole Dhillon MD [address] [place] [address] PCP - General Internal Medicine 09/15/23 documented as of this encounter
--- OUTSIDE RECORDS SUMMARY | 2024-08-18 12:56 | XMS_ITS | Encounter Summary ---
Author Organization [employer] ([place], [place], [place], [place]) Address [address] [place] [address] Care Team Providers Care It Trainee Name Role Phone Judie Moseley APRN Primary Care Provider [phone] Joel Dhillon MD Primary Care Provider [phone] Encounter Details Date Type Department Care Team (Late st Contact Info) Description 05/03/[address] [facility] Central Scheduling [address] [place] [address] Karlos Milton MD [address] [facility] [address] [place] [address] Social History Tobacco Use Types Packs/Day Years Used Date Smoking Tobacco: Every Day Cigarettes 1 35 Smokeless Tobacco: Never Alcohol Use Standard Drinks/Week Comments Yes 0 (1 standard drink = 0.6 oz pur e alcohol) Caffeine Use Sex and Gender Information Value Date Recorded Sex Assigned at Male 03/20/2022 6:49 PM SITE INSPECTOR Legal Sex Male 5:35 PM CDT Gender Identity Male 03/20/2022 6:49 PM SITE INSPECTOR Sexual Orientation Straight 03/20/2022 6: 49 PM SITE INSPECTOR documented as of this encounter Plan of Treatment Upcoming Encounters Date Type Department Care Team (Late st Contact Info) Description 09/09/2024 3:30 PM EDT Infusion [facility] [address] [place] [id number] 09/15/2024 1:15 PM EDT Office Visit [facility] Cardiology - [place] [address] [place] [address] Karlos Milton MD [address] [facility] [address] [place] [address] 02/21/2025 3:00 PM EST Infusion [facility] [address] [place] [address] documented as of this encounter Visit Diagnoses Not on filedocumented in this encounter Care Teams It Trainee Relationship Specialty Start Date End Date Judie Moseley, CARLITO PCP - General Nurse Practitioner 05/20/22 09/14/23 Joel Dhillon MD [address] [place] [address] PCP - General Internal Medicine 09/15/23 documented as of this encounter
--- OUTSIDE RECORDS SUMMARY | 2024-08-18 12:56 | XMS_ITS | Encounter Summary ---
Author Organization [employer] ([place], [place], [place], [place]) Address [address] [place] [address] Care Team Providers Care Manufacturer'S Representative Name Role Phone Judie Moseley Primary Care Provider Judie Foster APRN Primary Care Provider [phone] Joel Dhillon MD Primary Care Provider [phone] Encounter Details Date Type Department Care Team (Late st Contact Info) Description 10/28/2019 Transcribed Document [facility] [place] [facility] [address] [place] [address] ProviderLavelle MD [address] [place], [place] [id number] Social History Tobacco Use Types Packs/Day Years Used Date Smoking Tobacco: Never Assessed Sex and Gender Information Value Date Recorded Sex Assigned at Male 03/20/2022 6:49 PM [employer] Legal Sex Male 5:35 PM CDT Gender Identity Male 03/20/2022 6:49 PM [employer] Sexual Orientation Straight 03/20/2022 6: 49 PM [employer] documented as of this encounter Miscellaneous Notes * Cerner Conversion Note - Lavelle Carroll MD - 10/28/2019 12:56 PM CDT Patient Education Materials Follows: Angiogram, Care After This sheet gives you information about how to care for yourself after your procedure. Your doctor may also give you more specific instructions. If you have problems or questions, contact your doctor. Follow these instructions at home: Insertion site care ??? Follow instructions from your doctor about how to take care of your long, thin tube (catheter) insertion area. Make sure you: ? Wash your hands with soap and water before you change your bandage (dressing). If you cannot use soap and water, use hand veterinary virus serum inspector. ? Change your bandage as told by your doctor. ? Leave stitches (sutures), skin glue, or skin tape (adhesive) strips in place. They may need to stay in place for 2 weeks or longer. If tape strips get loose and curl up, you may trim the loose edges. Do not remove tape strips completely unless your doctor says it is okay. ??? Do not take baths, swim, or use a hot tub until your doctor says it is okay. ??? You may shower 24?48 hours after the procedure or as told by your doctor. ? Gently wash the area with plain soap and water. ? Pat the area dry with a clean towel. ? Do not rub the area. This may cause bleeding. ??? Do not apply powder or lotion to the area. Keep the area clean and dry. ??? Check your insertion area every day for signs of infection. Check for: ? More redness, swelling, or pain. ? Fluid or blood. ? Warmth. ? Pus or a bad smell. Activity ??? Rest as told by your doctor, usually for 1?2 days. ??? Do not lift anything that is heavier than 10 lbs. (4.5 kg) or as told by your doctor. ??? Do not drive for 24 hours if you were given a medicine to help you relax (sedative). ??? Do not drive or use heavy machinery while taking prescription pain medicine. General instructions ??? Go back to your normal activities as told by your doctor, usually in about a week. Ask your doctor what activities are safe for you. ??? If the insertion area starts to bleed, lie flat and put pressure on the area. If the bleeding does not stop, get help right away. This is an emergency. ??? Drink enough fluid to keep your pee (urine) clear or pale yellow. ??? Take eucy-vht-qcdrpmo and prescription medicines only as told by your doctor. ??? Keep all follow-up visits as told by your doctor. This is important. Contact a doctor if: ??? You have a fever. ??? You have chills. ??? You have more redness, swelling, or pain around your insertion area. ??? You have fluid or blood coming from your insertion area. ??? The insertion area feels warm to the touch. ??? You have pus or a bad smell coming from your insertion area. ??? You have more bruising around the insertion area. ??? Blood collects in the tissue around the insertion area (hematoma) that may be painful to the touch. Get help right away if: ??? You have a lot of pain in the insertion area. ??? The insertion area swells very fast. ??? The insertion area is bleeding, and the bleeding does not stop after holding steady pressure on the area. ??? The area near or just beyond the insertion area becomes pale, cool, tingly, or numb. These symptoms may be an emergency. Do not wait to see if the symptoms will go away. Get medical help right away. Call your local emergency services (911 in the [place] Do not drive yourself to the hospital. Summary ??? After the procedure, it is common to have bruising and tenderness at the long, thin tube insertion area. ??? After the procedure, it is important to rest and drink plenty of fluids. ??? Do not take baths, swim, or use a hot tub until your doctor says it is okay to do so. You may shower 24?48 hours after the procedure or as told by your doctor. ??? If the insertion area starts to bleed, lie flat and put pressure on the area. If the bleeding does not stop, get help right away. This is an emergency. This information is not intended to replace advice given to you by your health care provider. Make sure you discuss any questions you have with your health care provider. Document Released: 05/02/2009 Document Revised: 01/16/2018 Document Reviewed: 01/28/2017 [employer] Patient Education ? 2020 [employer] Radial Site Care This sheet gives you information about how to care for yourself after your procedure. Your health care provider may also give you more specific instructions. If you have problems or questions, contact your health care provider. What can I expect after the procedure? After the procedure, it is common to have: ??? Bruising and tenderness at the catheter insertion area. Follow these instructions at home: Medicines ??? Take plff-hgz-raaywsu and prescription medicines only as told by your health care provider. Insertion site care ??? Follow instructions from your health care provider about how to take care of your insertion site. Make sure you: ? Wash your hands with soap and water before you change your bandage (dressing). If soap and water are not available, use hand veterinary virus serum inspector. ? Change your dressing as told by your health care provider. ? Leave stitches (sutures), skin glue, or adhesive strips in place. These skin closures may need to stay in place for 2 weeks or longer. If adhesive strip edges start to loosen and curl up, you may trim the loose edges. Do not remove adhesive strips completely unless your health care provider tells you to do that. ??? Check your insertion site every day for signs of infection. Check for: ? Redness, swelling, or pain. ? Fluid or blood. ? Pus or a bad smell. ? Warmth. ??? Do not take baths, swim, or use a hot tub until your health care provider approves. ??? You may shower 24?48 hours after the procedure, or as directed by your health care provider. ? Remove the dressing and gently wash the site with plain soap and water. ? Pat the area dry with a clean towel. ? Do not rub the site. That could cause bleeding. ??? Do not apply powder or lotion to the site. Activity ??? For 24 hours after the procedure, or as directed by your health care provider: ? Do not flex or bend the affected arm. ? Do not push or pull heavy objects with the affected arm. ? Do not drive yourself home from the hospital or clinic. You may drive 24 hours after the procedure unless your health care provider tells you not to. ? Do not operate machinery or power tools. ??? Do not lift anything that is heavier than 10 lb (4.5 kg), or the limit that you are told, until your health care provider says that it is safe. ??? Ask your health care provider when it is okay to: ? Return to work or school. ? Resume usual physical activities or sports. ? Resume sexual activity. General instructions ??? If the catheter site starts to bleed, raise your arm and put firm pressure on the site. If the bleeding does not stop, get help right away. This is a medical emergency. ??? If you went home on the same day as your procedure, a responsible adult should be with you for the first 24 hours after you arrive home. ??? Keep all follow-up visits as told by your health care provider. This is important. Contact a health care provider if: ??? You have a fever. ??? You have redness, swelling, or yellow drainage around your insertion site. Get help right away if: ??? You have unusual pain at the radial site. ??? The catheter insertion area swells very fast. ??? The insertion area is bleeding, and the bleeding does not stop when you hold steady pressure on the area. ??? Your arm or hand becomes pale, cool, tingly, or numb. These symptoms may represent a serious problem that is an emergency. Do not wait to see if the symptoms will go away. Get medical help right away. Call your local emergency services (911 in the [place] Do not drive yourself to the hospital. Summary ??? After the procedure, it is common to have bruising and tenderness at the site. ??? Follow instructions from your health care provider about how to take care of your radial site wound. Check the wound every day for signs of infection. ??? Do not lift anything that is heavier than 10 lb (4.5 kg), or the limit that you are told, until your health care provider says that it is safe. This information is not intended to replace advice given to you by your health care provider. Make sure you discuss any questions you have with your health care provider. Document Released: 03/08/2011 Document Revised: 03/11/2018 Document Reviewed: 03/11/2018 [employer] Patient Education ? 2020 [employer] Steps to Quit Smoking Smoking tobacco is the leading cause of preventable . It can affect almost every organ in the body. Smoking puts you and people around you at risk for many serious, long-lasting (chronic) diseases. Quitting smoking can be hard, but it is one of the best things that you can do for your health. It is never too late to quit. How do I get ready to quit? When you decide to quit smoking, make a plan to help you succeed. Before you quit: ??? Pick a date to quit. Set a date within the next 2 weeks to give you time to prepare. ??? Write down the reasons why you are quitting. Keep this list in places where you will see it often. ??? Tell your family, friends, and co-workers that you are quitting. Their support is important. ??? Talk with your doctor about the choices that may help you quit. ??? Find out if your health insurance will pay for these treatments. ??? Know the people, places, things, and activities that make you want to smoke (triggers). Avoid them. What first steps can I take to quit smoking? Throw away all cigarettes at home, at work, and in your car. ??? Throw away the things that you use when you smoke, such as ashtrays and lighters. ??? Clean your car. Make sure to empty the ashtray. ??? Clean your home, including curtains and carpets. What can I do to help me quit smoking? Talk with your doctor about taking medicines and seeing a counselor at the same time. You are more likely to succeed when you do both. ??? If you are or , talk with your doctor about counseling or other ways to quit smoking. Do not take medicine to help you quit smoking unless your doctor tells you to do so. To quit smoking: Quit right away ??? Quit smoking totally, instead of slowly cutting back on how much you smoke over a period of time. ??? Go to counseling. You are more likely to quit if you go to counseling sessions regularly. Take medicine You may take medicines to help you quit. Some medicines need a prescription, and some you can buy xxnk-vtu-wvsjooh. Some medicines may contain a drug called nicotine to replace the nicotine in cigarettes. Medicines may: ??? Help you to stop having the desire to smoke (cravings). ??? Help to stop the problems that come when you stop smoking (withdrawal symptoms). Your doctor may ask you to use: ??? Nicotine patches, gum, or lozenges. ??? Nicotine inhalers or sprays. ??? Non-nicotine medicine that is taken by mouth. Find resources Find resources and other ways to help you quit smoking and remain smoke-free after you quit. These resources are most helpful when you use them often. They include: ??? Online chats with a counselor. ??? Phone quitlines. ??? Printed self-help materials. ??? Support groups or group counseling. ??? Text messaging programs. ??? Mobile phone apps. Use apps on your mobile phone or tablet that can help you stick to your quit plan. There are many free apps for mobile phones and tablets as well as websites. Examples include Quit Guide from the CDC and smokefree.gov What things can I do to make it easier to quit? Talk to your family and friends. Ask them to support and encourage you. ??? Call a phone quitline (NOW), reach out to support groups, or work with a counselor. ??? Ask people who smoke to not smoke around you. ??? Avoid places that make you want to smoke, such as: ? Bars. ? Parties. ? Smoke-break areas at work. ??? Spend time with people who do not smoke. ??? Lower the stress in your life. Stress can make you want to smoke. Try these things to help your stress: ? Getting regular exercise. ? Doing deep-breathing exercises. ? Doing yoga. ? Meditating. ? Doing a body scan. To do this, close your eyes, focus on one area of your body at a time from head to toe. Notice which parts of your body are tense. Try to relax the muscles in those areas. How will I feel when I quit smoking? Day 1 to 3 weeks Within the first 24 hours, you may start to have some problems that come from quitting tobacco. These problems are very bad 2?3 days after you quit, but they do not often last for more than 2?3 weeks. You may get these symptoms: ??? Mood swings. ??? Feeling restless, nervous, angry, or annoyed. ??? Trouble concentrating. ??? Dizziness. ??? Strong desire for high-sugar foods and nicotine. ??? Weight gain. ??? Trouble pooping (constipation). ??? Feeling like you may vomit (nausea). ??? Coughing or a sore throat. ??? Changes in how the medicines that you take for other issues work in your body. ??? Depression. ??? Trouble sleeping (insomnia). Week 3 and afterward After the first 2?3 weeks of quitting, you may start to notice more positive results, such as: ??? Better sense of smell and taste. ??? Less coughing and sore throat. ??? Slower heart rate. ??? Lower blood pressure. ??? Clearer skin. ??? Better breathing. ??? Fewer sick days. Quitting smoking can be hard. Do not give up if you fail the first time. Some people need to try a few times before they succeed. Do your best to stick to your quit plan, and talk with your doctor if you have any questions or concerns. Summary ??? Smoking tobacco is the leading cause of preventable . Quitting smoking can be hard, but it is one of the best things that you can do for your health. ??? When you decide to quit smoking, make a plan to help you succeed. ??? Quit smoking right away, not slowly over a period of time. ??? When you start quitting, seek help from your doctor, family, or friends. This information is not intended to replace advice given to you by your health care provider. Make sure you discuss any questions you have with your health care provider. Document Released: 11/30/2009 Document Revised: 04/23/2019 Document Reviewed: 04/24/2019 [employer] Patient Education ? 2020 [employer] Moderate Conscious Sedation, Adult, Care After These instructions provide you with information about caring for yourself after your procedure. Your health care provider may also give you more specific instructions. Your treatment has been planned according to current medical practices, but problems sometimes occur. Call your health care provider if you have any problems or questions after your procedure. What can I expect after the procedure? After your procedure, it is common: ??? To feel sleepy for several hours. ??? To feel clumsy and have poor balance for several hours. ??? To have poor judgment for several hours. ??? To vomit if you eat too soon. Follow these instructions at home: For at least 24 hours after the procedure: ??? Do not: ? Participate in activities where you could fall or become injured. ? Drive. ? Use heavy machinery. ? Drink alcohol. ? Take sleeping pills or medicines that cause drowsiness. ? Make important decisions or sign legal documents. ? Take care of children on your own. ??? Rest. Eating and drinking ??? Follow the diet recommended by your health care provider. ??? If you vomit: ? Drink water, juice, or soup when you can drink without vomiting. ? Make sure you have little or no nausea before eating solid foods. General instructions ??? Have a responsible adult stay with you until you are awake and alert. ??? Take qzqs-wux-uakdcvz and prescription medicines only as told by your health care provider. ??? If you smoke, do not smoke without supervision. ??? Keep all follow-up visits as told by your health care provider. This is important. Contact a health care provider if: ??? You keep feeling nauseous or you keep vomiting. ??? You feel light-headed. ??? You develop a rash. ??? You have a fever. Get help right away if: ??? You have trouble breathing. This information is not intended to replace advice given to you by your health care provider. Make sure you discuss any questions you have with your health care provider. Document Released: 11/24/2013 Document Revised: 01/16/2018 Document Reviewed: 05/25/2016 [employer] Patient Education ? 2020 [employer] documented in this encounter Plan of Treatment Upcoming Encounters Date Type Department Care Team (Late st Contact Info) Description 09/09/2024 3:30 PM EDT Infusion [facility] [address] [place] [address] 09/15/2024 1:15 PM EDT Office Visit [facility] - [place] [address] [place] [address] Karlos Milton MD [address] [facility] [address] [place] [address] 02/21/2025 3:00 PM EST Infusion [facility] [address] [place] [address] documented as of this encounter Visit Diagnoses Not on filedocumented in this encounter Care Teams Manufacturer'S Representative Relationship Specialty Start Date End Date Judie Moseley PCP - General 12/19/21 04/29/22 Judie Moseley APRN PCP - General Nurse Practitioner 05/20/22 09/14/23 Joel Dhillon MD [address] [place] [id number] PCP - General Internal Medicine 09/15/23 documented as of this encounter
--- OUTSIDE RECORDS SUMMARY | 2024-08-18 12:56 | XMS_ITS | Encounter Summary ---
Author Organization [employer] ([place], [place], [place], [place]) Address [address] [place] [address] Care Team Providers Care Representative Phlebotomy Services Name Role Phone Judie Moseley Primary Care Provider Judie Foster APRN Primary Care Provider [phone] Joel Dhillon MD Primary Care Provider [phone] Encounter Details Date Type Department Care Team (Late st Contact Info) Description 10/28/2019 Transcribed Document [facility] Family Medicine [address] [place] [address] ProviderLavelle MD [address], [place] [address] Social History Tobacco Use Types Packs/Day Years Used Date Smoking Tobacco: Never Assessed Sex and Gender Information Value Date Recorded Sex Assigned at Male 03/20/2022 6:49 PM WOOD AND HARDWARE OUTFITTER Legal Sex Male 5:35 PM CDT Gender Identity Male 03/20/2022 6:49 PM WOOD AND HARDWARE OUTFITTER Sexual Orientation Straight 03/20/2022 6: 49 PM WOOD AND HARDWARE OUTFITTER documented as of this encounter Miscellaneous Notes * Cerner Conversion Note - Historical ProviderMD - 10/28/2019 8:05 AM CDT Pre Procedure Adult Entered On: 10/28/2019 8:12 EDT Performed On: 10/28/2019 8:05 EDT by VIVIAN ORTEGA RN Height and Weight, Clinical Dosing Height Source : Stated Height Entry Format : Vaughn Height, Feet : 5 ft(Converted to: 152 cm, 60 Inch) Height, Inches : 8 Inch(Converted to: 0 ft 8 Inch, 20.32 cm) Clinical Height : 172.72 cm Weight Source : Standing scale Weight Entry Format : Vaughn Clinical Dosing Weight : 126.82 kg Weight, Pounds : 279 lb Body Surface Area (BSA) : 2.36 m2 Body Mass Index : 42.5 kg/m2 (>HHI) [place] Body Weight : 67 kg VIVIAN ORTEGATYLER - 10/28/2019 8:05 EDT Health Histories Smoking Status : 10 or more cigarettes (1/2 pack or more)/day in last 30 days Smokeless Tobacco Status : Never Desires Tobacco Cessation Medication : No Reason for No Tobacco Cessation Medication : ED/procedural patient only MICHAELLINDSAY VIVIANTYLER - 10/28/2019 8:05 EDT Social History (As Of: 10/28/2019 08:12:30 EDT) Tobacco: Use in Last 12 Months: Cigarettes. Smoking Status Current every day smoker. Years of Use: 25. Packs/Tins Daily: 0.5. Used Tobacco, but Quit No. (Last Updated: 07/27/2014 11:31:52 EDT by LEONID CARO, TYLER) Smoking Status Current every day smoker. Five or more cigarettes per day Smoking Frequency Within Last 30 Days. Years of Use: 30. Packs/Tins Daily: 0.5. Used Tobacco, but Quit No. Second Hand Smoke Exposure: Yes. No Smokeless Tobacco Use in Last 30 Days. None Smokeless Tobacco Use History. (Last Updated: 10/19/2015 10:04:17 EDT by Kristi Nobles RN) Alcohol: Alcohol Use History Yes. Date/Time of Last Drink: once a month - or less. (Last Updated: 07/27/2014 11:32:07 EDT by LEONID CARO, TYLER) Substance Abuse: Drug Use Hx: No. Use in Last 12 Months: No. (Last Updated: 07/27/2014 11:32:13 EDT by LEONID CARO RN) Infectious Disease History Has the patient ever been tested for COVID-19? : Yes, Patient stated results Negative Date of COVID-19 test known? : Yes Does patient have symptoms of COVID-19? : No COVID19 Screening : No Experiencing Infectious Disease Symptoms : No symptoms Physical contact outside [place] in the last 30 days : No Infectious Disease History : Chicken pox/Shingles, Influenza Tuberculosis Symptoms : None VIVIAN ORTEGA RN - 10/28/2019 8:05 EDT COVID19 PreProcedure Screening Is this an Emergent or Add on Procedure? : No Has patient been isolated since the test : Yes Exposed to COVID19 symptoms since test? : No VIVIAN ORTEGA RN - 10/28/2019 8:05 EDT Anesthesia/Transfusion History Family History of Anesthesia Reaction : No prior transfusion(s) Blood Transfusion Acceptable to Patient : Yes Transfusion History : Prior anesthesia without reaction Family History of Anesthesia Reaction : None VIVIAN ORTEGA RN - 10/28/2019 8:05 EDT Functional Assessment Living Situation : Home Patient Lives With : Spouse Current Home Treatments : Blood glucose monitoring, CPAP VIVIAN ORTEGA RN - 10/28/2019 8:05 EDT [place] Suicide Severity Rating Scale (C-SSRS) CSSRS Past Month Wish to be : No CSSRS Past Month Suicidal Thoughts : No CSSRS Lifetime Suicide Behavior : No Suicide Severity Rating Score : 0 Suicide Severity Rating : No Additional Care Required at this time VIVIAN ORTEGA RN - 10/28/2019 8:05 EDT Psychosocial History Chronic/Terminal Illness w/Freq Visits : No Do You Have a History of the Following? : Patient denies history Currently in Unsafe Situation : No VIVIAN ORTEGA RN - 10/28/2019 8:05 EDT Advance Directive Patient has Advance Directive *Q : Yes, Advance Directive not with the patient Advance Directive Type : CPR directive Copy Advance Directive Verified/on Chart : No VIVIAN ORTEGA RN - 10/28/2019 8:05 EDT Teaching/Learning Assessment Barriers To Learning : None evident Individuals Taught : Patient, Spouse Readiness to Learn : Cooperative Baseline Knowledge of Topic : Limited Readiness to Learn : Explanation Learning Style Preferences Patient : Verbal explanation Learning Style Preferences Family : Verbal explanation VIVIAN ORTEGA RN - 10/28/2019 8:05 EDT Education Topics, Periop Preadmission Perioperative Education Grid Arrival Time/Place : Verbalizes understanding CAUTI : Verbalizes understanding Central Lines : Verbalizes understanding CHG Preoperative Bathing/Cloths : Verbalizes understanding Falls : Verbalizes understanding Incentive Spirometry : Verbalizes understanding Infection Control : Verbalizes understanding IV's : Verbalizes understanding NPO Status/Directions : Verbalizes understanding Pain Management : Verbalizes understanding Postoperative Care Preparations : Verbalizes understanding Preprocedure Preparations : Verbalizes understanding Preprocedure Tests/Labs : Verbalizes understanding Remove Body Piercings : Verbalizes understanding Responsible Adult : Verbalizes understanding SNE's : Verbalizes understanding Take/Hold Medications Pre-Procedure : Verbalizes understanding Other : Verbalizes understanding VIVIAN ORTEGA RN - 10/28/2019 8:05 EDT General Info Arrived From : Home Mode of Arrival on Unit : Ambulatory Patient Arrival Date/Time : 10/28/2019 7:42 EDT Legal Guardian : Spouse Legal Guardian : No Support Person/Patient Pull Worker : Yes Want Family/Rep/Phys Notified of Admit : No Emergency Contact #1 : Shy Ledesma Emergency Contact #1 Phone Number : [phone] Emergency Contact #1 Relationship : Emergency Contact #2 : na Emergency Contact #2 Phone Number : na Emergency Contact #2 Relationship : na Information Obtained From : Patient Primary Language : Swiss Preferred Communication Mode : Verbal Communication Barrier : None Busboy Needed : No VIVIAN ORTEGA RN - 10/28/2019 8:05 EDT Vital Measurements Temperature Source : Temporal artery scanning Temperature Mode : Fahrenheit Temperature, Fahrenheit : 97.4 Deg F Clinical Temperature, C : 36.3 Deg C Peripheral Pulse Rate : 65 bpm Systolic Blood Pressure : 184 mmHg (HI) Diastolic Blood Pressure : 81 mmHg Oxygen Saturation : 98 % Oxygen Therapy Mode : Room air VIVIAN ORTEGA RN - 10/28/2019 8:05 EDT Sleep Apnea Risk Assmt BiPAP/CPAP Ordered for Home Use : Yes Hx of Obstructive Sleep Apnea Diagnosis : Yes BiPAP/CPAP Used at Home : Yes Age over 50 Years Old : No Gender Male : Yes VIVIAN ORTEGA RN - 10/28/2019 8:05 EDT Jarrod Scale Jarrod Sensory Perception : No impairment Jarrod Moisture : Rarely moist Jarrod Activity : Walks frequently Jarrod Mobility : No limitation Jarrod Nutrition : Excellent Jarrod Friction and Shear : No apparent problem Jarrod Score : 23 VIVIAN ORTEGA RN - 10/28/2019 8:05 EDT Oxygen Therapy Oxygen Therapy Mode : Room air VIVIAN ORTEGA RN - 10/28/2019 8:05 EDT Pain Assessment Pain Assessment : Initial assessment Pain Scale Used : 0-10 Scale VIVIAN ORTEGA RN - 10/28/2019 8:05 EDT Fall Risk Scales ABCs Fall Injury Risk Identification : None REYNAGA Hx Falls Immediate/Within 3 Months : No Reynaga Secondary Diagnosis : No REYNAGA Use of Ambulatory Aid : None REYNAGA IV Therapy or IV Access : Yes Reynaga Gait/Transferring : Normal, bedrest, immobile Reynaga Mental Status : Oriented to own ability Reynaga Fall Risk Score : 20 REYNAGA Fall Scale Risk Level : 0-24 Low Risk [place] Fall Interventions : Adequate lighting, Bed in low position, Call device within reach, Frequent orientation to call device, Frequent orientation to surroundings, Non-slip footwear, Personal items within reach, Room free of clutter/spills, Wheels locked VIVIAN ORTEGA RN - 10/28/2019 8:05 EDT Valuables and Belongings Valuables and Belongings : Clothing, Jewelry, Personal items Clothing : Common streetwear Clothing Disposition : Bedside, With family Jewelry : Ring-plain band Jewelry Disposition : With patient Personal Items : Cell phone, Wallet Personal Items Disposition : Bedside, With family, Declines to send to security/safe VIVIAN ORTEGA RN - 10/28/2019 8:05 EDT Pain Scale Intensity : 0 VIVIAN ORTEGA RN - 10/28/2019 8:05 EDT Image 4 - Images currently included in the form version of this document have not been included in the text rendition version of the form. documented in this encounter Plan of Treatment Upcoming Encounters Date Type Department Care Team (Late st Contact Info) Description 09/09/2024 3:30 PM EDT Infusion [facility] Outpatient Infusion [address] [place] [address] 09/15/2024 1:15 PM EDT Office Visit [facility] Cardiology - [place] [address] [place] [address] Karlos Milton MD [address] [facility] [address] [place] [address] 02/21/2025 3:00 PM EST Infusion [facility] Outpatient Infusion [address] [place] [address] documented as of this encounter Visit Diagnoses Not on filedocumented in this encounter Care Teams Representative Phlebotomy Services Relationship Specialty Start Date End Date Judie Moseley PCP - General 12/19/21 04/29/22 Judie Moseley APRN PCP - General Nurse Practitioner 05/20/22 09/14/23 Joel Dhillon MD [address] [place] [address] PCP - General Internal Medicine 09/15/23 documented as of this encounter
--- OUTSIDE RECORDS SUMMARY | 2024-08-18 12:56 | XMS_ITS | Clinical Summary ---
Author Organization [employer] ([place], [place], [place], [place]) Address [address] [address] Care Team Providers Care Mat Cutter Name Role Phone Joel Dhillon MD Primary Care Provider [phone] Allergies Active Allergy Reactions Criticality Noted Date [...] Units total) by mouth once a week. Active clopidogreL (PLAVIX) 75 mg tablet Take 1 tablet by mouth once daily 90 tablet Active azelastine (ASTELIN) 137 mcg (0.1 %) nasal spray USE 2 SPRAY(S) IN EACH NOSTRIL AT BEDTIME NIGHTLY Active Accu-Chek Guide test strips Strp USE 1 STRIP TO CHECK GLUCOSE THREE TIMES DAILY Active Advair HFA 230-21 mcg/actuation inhaler 1 [...] tablet (10 mg total) by mouth daily. 12/30/2 024 Active atorvastatin (LIPITOR) 80 MG tablet TAKE 1 TABLET BY MOUTH EVERY MORNING 30 tablet 10 025 Active sacubitriL-valsar salazar (Entresto) 24-26 mg tabletIndications :Acute on chronic diastolic heart failure (HCC) Take 1 tablet by mouth 2 (two) times daily for 90 days. 180 tablet 025 2024 Active icosapent ethyL (VASCEPA) 1 gram cap capsuleIndication s:Mixed hyperlipidemia TAKE 2 CAPSULES BY MOUTH TWICE DAILY 120 capsule 11 025 Active potassium chloride (KLOR-CON) 20 MEQ tablet [...] 12/18/2021 Arthritis 12/14/2021 GERD (gastroesophageal reflux disease) Diabetic peripheral neuropathy 12/14/2021 Encounter for preprocedural [...] BiPAP (biphasic positive airway pressure) depend ence Encounters Date Type Department Care Team Description 08/13/[address] [address] Karlos Milton MD Acute on chronic diastolic heart failure (HCC) 07/26/2024 2:00 PM EDT Infusion [facility] Outpatient Infusion [address] [place] [address] CVD (cardiovascular disease) (Primary Dx) 07/26/2024 Travel [address] [address] Karlos Milton MD 06/15/[address] [address] Karlos Milton MD Mixed hyperlipidemia 05/27/2024 Orders Only [address] [address] Rosie Sofia CMA Acute on chronic diastolic heart failure (HCC) (Primary Dx) 05/24/2024 Abstract [facility] [address] [place] [address] Karlos Milton MD 05/19/2024 Refill [place] [address] [place] [address] Karlos Milton MD Acute on chronic diastolic heart failure (HCC) from Last 3 Months Family History Medical History Relation Name Comments Schizophrenia Brother Khoi Slade Cancer Father Marti Sr. Heart attack Father Marti Sr. Heart disease Father Marti Sr. Rheum arthritis Father Marti Sr. Skin cancer Father Marti Sr. Stroke Maternal Aunt Molly Coronary artery disease Mother Rain Diabetes Mother Rain Heart disease Mother Rain Hypertension Mother Rain Stroke Mother Rain Cancer Sister 1 Lien Heart attack Sister 1 Lien Hypertension Sister 1 Lien Skin cancer Sister 1 Lien Heart disease Sister 2 Liyah Relation Name Status Comments Brother Khoi Slade Father Marti Sr. Maternal Aunt Molly Mother Rain Sister 1 Lien Sister 2 Liyah Social History Tobacco Use Types Packs/Day Years [...] Date Troy rded Speak language other than Italian at home Not on file 02/27/2023 Want help with school or training Not on file 02/27/2023 Substance Use Answer Date Recorded Used prescription meds for non-medical reasons N ot on file 02/27/2023 Used illegal drugs past 12 months Not on file 02/27/2023 Sex and Gender Information Value Date Recorded Sex Assigned at Male 03/20/2022 6:49 PM BRAKE LININGS COATER Legal Sex Male 5:35 PM CDT Gender Identity Male 03/20/2022 6:49 PM BRAKE LININGS COATER Sexual Orientation Straight 03/20/2022 6: 49 PM BRAKE LININGS COATER Last Filed Vital Signs Vital Sign Reading [...] Info) Description 09/09/2024 3:30 PM EDT Infusion [facility] Outpatient Infusion [address] [place] [address] 09/15/2024 1:15 PM EDT Office Visit [facility] Cardiology - [place] [address] [place] [address] Karlos iMlton MD [address] [facility] [address] [place] [address] 02/21/2025 3:00 PM EST Infusion [facility] Outpatient Infusion [address] [place] [address] Health Maintenance Due Date Last Done Comments CT Colonography 1972 Colonoscopy 1972 Colorectal Cancer Screening 1972 Diabetic Kidney Health Evaluation (KED) 1972 FOBT/FIT 1972 Fit-DNA (Cologuard) 1972 Sigmoidoscopy 1972 Diabetic Eye Exam 1982 Depression Screening (12+) 1984 Tobacco Cessation Counseling and Screening (12+) 07/15 HIV Screening 07/16/1987 Hepatitis C Screening 1990 Pneumococcal 50+ years (2 of 2 - PCV) 11/24/201908/2018 Lung cancer screening 2022 Shingles Vaccine (Zoster) (1 of 2) 2022 DTAP/TDAP/TD VACCINES (2 - Td or Tdap) 08/10/2022 Hemoglobin A1C 08/19/2023 02/18/2023 COVID-19 VACCINE (1 - season) 2023 Influenza Vaccine (#1) 2024 12/05/2016 Lipid Panel 02/18/2026 02/18/2023 Medical Devices Implanted Type Area Cocoa Room Operator Device Identifier Shelf Expiration Date Model / Serial / Lot Stent Cor [place] Front [id number] [id number] IMPLANTS [employer]:VASCULA R 08/23/2024 [id number] / / Stent Cor Chan Front [id number] IMPLANTS MEDTR[employer]:VASCULA R 08/16/2023 [id number] / / Procedures Procedure Name Priority Date/Time Associated Diagnosis Comments HEMOGLOBIN A1C Routine 02/18/2023 3:33 PM EST Type 2 diabetes mellitus with other specified complication, unspecified whether terminal operator insulin use (HCC) LIPID PANEL Routine 02/18/2023 [...] 5:06 AM EST Performed at: 01 - [address] [id number] Manager Inside: Abdiel Goncalves PhD, Phone: [phone] us Cherelle Johnson APRN LAB BLOOD ORDERABLES Final Res ult [facility] [...] AM EST Performed at: 01 - [facility] [address] [id number] Manager Inside: Abdiel Goncalves PhD, Phone: [phone] us Cherelle Johnson SAFETY AND HEALTH MANAGER LAB BLOOD ORDERABLES Final Res ult [facility] from Last 3 Months or Most Recently Relevant to Health Maintenance Insurance [facility] Advance Directives For more information, please contact: [phone] Documents on File Type Date Recorded Patient Heel Dipper Expl anation Advance Directives and Livin g Will 03/22/2022 6:16 AM * Full Code (Latest Code Status on File) Date Activated Date Inactivated Comments 03/22/2022 6:00 AM 03/23/2022 4:52 AM Care Teams Mat Cutter Relationship Specialty Start Date End Date Joel Dhillon MD [address] [place] [address] PCP - General Internal Medicine 09/15/23
--- OUTSIDE RECORDS SUMMARY | 2024-08-18 12:56 | XMS_ITS | Encounter Summary ---
Author Organization [employer] ([place], [place], [place], [place]) Address [address] [place] [address] Care Team Providers Care Can Coverer Name Role Phone Judie Moseley APRN Primary Care Provider [phone] Joel Dhillon MD Primary Care Provider [phone] Reason for Visit * Reason Comments Medication Refill Encounter Details Date Type Department Care Team (Late st Contact Info) Description 07/11/2022 Refill [facility] Cardiology [address] [place], [place] [address] [place] [address] [place] [address] [address] [place] [address] Acute on chronic diastolic heart failure (HCC) Social History Tobacco Use Types Packs/Day Years Used Date Smoking Tobacco: Every Day Cigarettes 1 35 Smokeless Tobacco: Never Alcohol Use Standard Drinks/Week Comments Yes 0 (1 standard drink = 0.6 oz pur e alcohol) Caffeine Use Sex and Gender Information Value Date Recorded Sex Assigned at Male 03/20/2022 6:49 PM AMERICANIZATION TEACHER Legal Sex Male 5:35 PM CDT Gender Identity Male 03/20/2022 6:49 PM AMERICANIZATION TEACHER Sexual Orientation Straight 03/20/2022 6: 49 PM AMERICANIZATION TEACHER documented as of this encounter Miscellaneous Notes * Telephone Encounter - Pili Edy - 07/23/2022 3:45 PM EDT LV was with Dr Delgado I sent in 1 month supply of Entresto to pharmacy as requested but pt needs to establish care with [facility] before January to continue to get refill. We will send in refills every month as requested untl November then an appointment needs to be scheduled with [facility]. documented in this encounter Plan of Treatment Upcoming Encounters Date Type Department Care Team (Late st Contact Info) Description 09/09/2024 3:30 PM EDT Infusion [facility] Outpatient Infusion [address] [place] [address] 09/15/2024 1:15 PM EDT Office Visit [facility] Cardiology - [place] [address] [place] [address] Karlos Milton MD [address] [facility] [address] [place] [address] 02/21/2025 3:00 PM EST Infusion [facility] Outpatient Infusion [address] [place] [address] documented as of this encounter Visit Diagnoses Diagnosis Acute on chronic diastolic heart failure (HCC) Acute on chronic diastolic heart failure documented in this encounter Care Teams Can Coverer Relationship Specialty Start Date End Date Judie Moseley APRN PCP - General Nurse Practitioner 05/20/22 09/14/23 Joel Dhillon MD [address] [place] [address] PCP - General Internal Medicine 09/15/23 documented as of this encounter
--- OUTSIDE RECORDS SUMMARY | 2024-08-18 12:56 | XMS_ITS | Encounter Summary ---
Author Organization [employer] ([place], [place], [place], [place]) Address [address] [place] [address] Care Team Providers Care Critical Care Technician Name Role Phone Joel Dhillon MD Primary Care Provider [phone] Reason for Visit * Reason Comments Medication Refill Encounter Details Date Type Department Care Team (Late st Contact Info) Description 10/27/2023 Refill [facility] Cardiology - [place] [address] [place] [address] Karlos Milton MD [address] [facility] [address] [place] [address] Hypertension, unspecified type Social History Tobacco Use Types Packs/Day Years [...] Date Troy rded Speak language other than Czech at home Not on file 02/27/2023 Want help with school or training Not on file 02/27/2023 Substance Use Answer Date Recorded Used prescription meds for non-medical reasons N ot on file 02/27/2023 Used illegal drugs past 12 months Not on file 02/27/2023 Sex and Gender Information Value Date Recorded Sex Assigned at Male 03/20/2022 6:49 PM ACCOUNT MANAGER FOREST SERVICE Legal Sex Male 5:35 PM CDT Gender Identity Male 03/20/2022 6:49 PM ACCOUNT MANAGER FOREST SERVICE Sexual Orientation Straight 03/20/2022 6: 49 PM ACCOUNT MANAGER FOREST SERVICE documented as of this encounter Plan of Treatment Upcoming Encounters Date Type Department Care Team (Late st Contact Info) Description 09/09/2024 3:30 PM EDT Infusion [facility] Outpatient Infusion [address] [place] [address] 09/15/2024 1:15 PM EDT Office Visit [facility] Cardiology - [place] [address] [place] [address] Karlos Milton MD [address] [facility] [address] [place] [address] 02/21/2025 3:00 PM EST Infusion [facility] Outpatient Infusion [address] [place] [address] documented as of this encounter Visit Diagnoses Diagnosis Hypertension, unspecified type documented in this encounter Care Teams Critical Care Technician Relationship Specialty Start Date End Date Joel Dhillon MD [address] [place] [address] PCP - General Internal Medicine 09/15/23 documented as of this encounter
--- OUTSIDE RECORDS SUMMARY | 2024-08-18 12:56 | XMS_ITS | Encounter Summary ---
Author Organization [employer] ([place], [place], [place], [place]) Address [address] [place] [address] Care Team Providers Care Well Driller Helper Name Role Phone Judie Moseley Primary Care Provider Judie Foster APRN Primary Care Provider [phone] Joel Dhillon MD Primary Care Provider [phone] Encounter Details Date Type Department Care Team (Late st Contact Info) Description 12/24/2021 Outside Orders [facility] Central Scheduling [address] [place] [address] Thomas Delgado MD [address] [facility] [address] [place] [address] Social History Tobacco Use Types Packs/Day Years Used Date Smoking Tobacco: Every Day Smokeless Tobacco: Never Alcohol Use Standard Drinks/Week Comments Yes 0 (1 standard drink = 0.6 oz pur e alcohol) Sex and Gender Information Value Date Recorded Sex Assigned at Male 03/20/2022 6:49 PM WATER TREATMENT PLANT OPERATOR Legal Sex Male 5:35 PM CDT Gender Identity Male 03/20/2022 6:49 PM WATER TREATMENT PLANT OPERATOR Sexual Orientation Straight 03/20/2022 6: 49 PM WATER TREATMENT PLANT OPERATOR documented as of this encounter Plan of Treatment Upcoming Encounters Date Type Department Care Team (Late st Contact Info) Description 09/09/2024 3:30 PM EDT Infusion [facility] Outpatient Infusion [address] [place] [address] 09/15/2024 1:15 PM EDT Office Visit [facility] Cardiology - [place] [address] [place] [address] Karlos Milton MD [address] [facility] [address] [place] [address] 02/21/2025 3:00 PM EST Infusion [facility] Outpatient Infusion [address] [place] [address] documented as of this encounter Visit Diagnoses Not on filedocumented in this encounter Care Teams Well Driller Helper Relationship Specialty Start Date End Date Judie Moseley PCP - General 12/19/21 04/29/22 Judie Moseley, CUSTOMER SUPPORT PROFESSIONAL PCP - General Nurse Practitioner 05/20/22 09/14/23 Joel Dhillon MD [address] [place] [address] PCP - General Internal Medicine 09/15/23 documented as of this encounter
--- OUTSIDE RECORDS SUMMARY | 2024-08-18 12:56 | XMS_ITS | Clinical Summary ---
Author Organization Healthcare Address [address] [place] [address] Care Team Providers Care Child Care Counselor Name Role Phone Judie Moseley APRN Primary Care Provider [phone] Family History Medical History Relation Name Comments CABG Father Coronary artery disease Father Lung cancer Father Diabetes Mother Diabetes Other Thyroid disease Sister Relation Name Status Comments Father Mother Other Sister Social History Tobacco Use Types Packs/Day Years Used Date Smoking Tobacco: Every Day Alcohol Use Standard Drinks/Week Comments Yes 0 (1 standard drink = 0.6 oz pure alcohol) Alcoholic Drinks/day: Social alcohol use Comments Unknown Sex and Gender Information Value Date Recorded Sex Assigned at Female 12/19/2021 4:00 PM EDT Legal Sex Male 8:08 PM EDT Gender Identity Male 12/19/2021 4:00 PM EDT Sexual Orientation Straight 12/19/2021 4: 00 PM EDT Last Filed Vital Signs Vital Sign Reading Time Taken Comments Blood Pressure 111/67 04/05/2019 3:23 PM EST Pulse 74 04/05/2019 3:23 PM EST Temperature 36.8 C (98.3 F) 02/01/2019 3:17 PM EST Respiratory Rate - - Oxygen Saturation - - Inhaled Oxygen Concentration - - Weight 121 kg (265 lb 10.5 oz) 04/05/2019 3:23 P M EST Height 172.7 cm (5' 8 ) 04/05/2019 3:23 PM EST Body Mass Index 40.39 04/05/2019 3:23 PM EST Plan of Treatment Not on file Care Teams Child Care Counselor Relationship Specialty Start Date End Date Judie Moseley, CAR[address]ITO [address] [place] [address] PCP - General 06/30/20
--- OUTSIDE RECORDS SUMMARY | 2024-08-18 12:56 | XMS_ITS | Encounter Summary ---
Author Organization [employer] ([place], [place], [place], [place]) Address [address] [place] [address] Care Team Providers Care Viscosity Inspector Name Role Phone Judie Moseley Primary Care Provider Judie Foster APRN Primary Care Provider [phone] Joel Dhillon MD Primary Care Provider [phone] Encounter Details Date Type Department Care Team (Late st Contact Info) Description 10/28/2019 Transcribed Document [facility] Family Medicine [address] [place] [address] ProviderLavelle MD [address] [place], [place] [id number] Social History Tobacco Use Types Packs/Day Years Used Date Smoking Tobacco: Never Assessed Sex and Gender Information Value Date Recorded Sex Assigned at Male 03/20/2022 6:49 PM BLOCK HACKER Legal Sex Male 5:35 PM CDT Gender Identity Male 03/20/2022 6:49 PM BLOCK HACKER Sexual Orientation Straight 03/20/2022 6: 49 PM BLOCK HACKER documented as of this encounter Miscellaneous Notes * Cerner Conversion Note - Lavelle ProviderMD - 10/28/2019 12:59 PM CDT Nursing Discharge Summary Entered On: 10/28/2019 12:59 EDT Performed On: 10/28/2019 12:59 EDT by Brandie Echevarria RN Discharge Documentation Discharge Date/Time : 10/28/2019 14:05 EDT Transporter Signature : Brandie Echevarria, RN Brandie Echevarria RN - 10/28/2019 14:10 EDT Patient Disposition, General : Discharge Discharge To : Home with ambulatory/outpatient follow-up Mode Of Departure, General Discharge : Private vehicle Accompanied By, Discharge : Spouse IV Discontinued : Yes Personal Belongings With Patient : Yes Pt's Own Supply of Medications Returned : No patient supply of medications to return Patient Education Completed : Yes Teaching Method : Explanation, Printed materials Teaching Evaluation : Verbalizes understanding Brandie Echevarria RN - 10/28/2019 12:59 EDT documented in this encounter Plan of Treatment Upcoming Encounters Date Type Department Care Team (Late st Contact Info) Description 09/09/2024 3:30 PM EDT Infusion [facility] Outpatient Infusion [address] [place] [address] 09/15/2024 1:15 PM EDT Office Visit [facility] Cardiology - [place] [address] [place] [address] Karlos Milton MD [address] [facility] [address] [place] [address] 02/21/2025 3:00 PM EST Infusion [facility] Outpatient Infusion [address] [place] [address] documented as of this encounter Visit Diagnoses Not on filedocumented in this encounter Care Teams Viscosity Inspector Relationship Specialty Start Date End Date Judie Moseley PCP - General 12/19/21 04/29/22 Judie Moseley, CORE MANAGER PCP - General Nurse Practitioner 05/20/22 09/14/23 Joel Dhillon MD [address] [place] [address] PCP - General Internal Medicine 09/15/23 documented as of this encounter
--- OUTSIDE RECORDS SUMMARY | 2024-08-18 12:56 | XMS_ITS | Encounter Summary ---
Author Organization [employer] ([place], [place], [place], [place]) Address [address] [place] [address] Care Team Providers Care Memorial Counselor Name Role Phone Judie Moseley Primary Care Provider Judie Foster APRN Primary Care Provider [phone] Joel Dhillon MD Primary Care Provider [phone] Reason for Visit * Reason Onset Date Comments Medication Management 01/03/2022 patient ca lled wants clarification on the dosage for bisoprolol -states he was taking 1 pill twice daily and still is but the prescription was called in for 1 pill daily Encounter Details Date Type Department Care Team (Late st Contact Info) Description 01/03/2022 Telephone [facility] Cardiology - [address] [address] Maria Luz Tom APRN [address] [place] [address] [address] [place] [address] Medication Management (patient called wants clarification on the dosage for bisoprolol -states he was taking 1 pill twice daily and still is but the prescription was called in for 1 pill daily ) Social History Tobacco Use Types Packs/Day Years Used Date Smoking Tobacco: Every Day Smokeless Tobacco: Never Alcohol Use Standard Drinks/Week Comments Yes 0 (1 standard drink = 0.6 oz pur e alcohol) Sex and Gender Information Value Date Recorded Sex Assigned at Male 03/20/2022 6:49 PM GRIP WRAPPER Legal Sex Male 5:35 PM CDT Gender Identity Male 03/20/2022 6:49 PM GRIP WRAPPER Sexual Orientation Straight 03/20/2022 6: 49 PM GRIP WRAPPER documented as of this encounter Plan of Treatment Upcoming Encounters Date Type Department Care Team (Late st Contact Info) Description 09/09/2024 3:30 PM EDT Infusion [facility] Outpatient Infusion [address] [place] [address] 09/15/2024 1:15 PM EDT Office Visit [facility] Cardiology - [place] [address] [place] [address] Karlos Milton MD [address] [facility] [address] [place] [address] 02/21/2025 3:00 PM EST Infusion [facility] Outpatient Infusion [address] [place] [address] documented as of this encounter Visit Diagnoses Not on filedocumented in this encounter Care Teams Memorial Counselor Relationship Specialty Start Date End Date Judie Moseley PCP - General 12/19/21 04/29/22 Judie Moseley, MACHINE COREMAKER PCP - General Nurse Practitioner 05/20/22 09/14/23 Joel Dhillon MD [address] [place] [address] PCP - General Internal Medicine 09/15/23 documented as of this encounter
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
--- OUTSIDE RECORDS SUMMARY | 2024-08-18 12:56 | XMS_ITS | Encounter Summary ---
Author Organization [employer] ([place], [place], [place], [place]) Address [address] [place] [address] Care Team Providers Care Life Consultant Name Role Phone Nilsa Moseley Primary Care Provider Nilsa Foster APRN Primary Care Provider [phone] Joel Dhillon MD Primary Care Provider [phone] Encounter Details Date Type Department Care Team (Late st Contact Info) Description 10/28/2019 Transcribed Document [facility] [place] [address] [place] [address] ProviderLavelle MD [address] [place] [address] Social History Tobacco Use Types Packs/Day Years Used Date Smoking Tobacco: Never Assessed Sex and Gender Information Value Date Recorded Sex Assigned at Male 03/20/2022 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 [place] [address] JOSUE AQUINO JR :1970 Visit Time:10/28/2019 Your Visit Summary Your Care Team Admitting Physician - OSWALDO REYES MD-CAR Attending Physician - OSWALDO REYES MD-JARROD Primary Care Physician - NILSA MOSELEY NP-AGATA Referring Physician - OSWALDO REYES MD-CAR Your Diagnosis Abnormal result of other cardiovascular function study, Abnormal result of other cardiovascular function study Discharge Vitals Temperature 36.3 ??C Heart Rate (Monitored) 60 Respiratory Rate 21 Blood Pressure 132/71 What to do next Instructions From Your Care Team Diet after Discharge: Heart healthy diet, Do not drink any alcoholic beverages, Drink at least 8-10 glasses of water per day Activity after Discharge: As toleratedafter Rest and relax today, No strenuous activity for 5-7 days Lifting Restrictions: No heavy lifting over 10 pounds for 1 week, no lifting over 1 pound for 48 hours Driving after Discharge: Do not drive for 24 hours May Return to Work/School: Showering/Bathing: No showering for 24 hours, Do not submerge wrist in water until site is healed. Notify Provider of: Any signs of infection Wound/Incision Care after Discharge: Keep operative site/wound site clean and dry, May remove dressing in 24 hours Follow-Up Appointments Follow Up with DA VALENTIN When Within 1 month Comments [facility] office, Call for follow up appointment Where: Medications What How Much When Instructions Next Dose clopidogrel (Plavix 75 mg oral tablet) 1 Tablet(s) Oral Every Day ranolazine (Ranexa 1000 mg oral tablet, extended release) 1 Tablet(s) Oral Two Times A Day aspirin (Aspirin Low Dose 81 mg oral tablet) 81 Milligram(s) Oral Every Day atorvastatin (Lipitor 80 mg oral tablet) 1 Tablet(s) Oral Every Day bisoprolol (bisoprolol 5 mg oral tablet) 1 Tablet(s) Oral bumetanide (bumetanide 2 mg oral tablet) 1 Tablet(s) Oral Two Times A Day empagliflozin (Jardiance 25 mg oral tablet) 1 Tablet(s) Oral Every Morning fenofibrate (fenofibrate 54 mg oral tablet) 1 Tablet(s) Oral Every Day icosapent (Vascepa 1 g oral capsule) 2 Capsule(s) Oral Two Times A Day insulin glargine (Basaglar KwikPen) 50 Unit(s) SubCutaneous Two Times A Day insulin lispro (Admelog 100 units/ mL injectable solution) See instructions sliding scale plus 28-30 units additional per meal levocetirizine (Xyzal 5 mg oral tablet) 1 Tablet(s) Oral Every Evening losartan (losartan 25 mg oral tablet) 1 Tablet(s) Oral Every Day montelukast (montelukast 10 mg oral tablet) 1 Tablet(s) Oral Every Evening Non Formulary (ipratripum bromide) Nasal Three Times A Day omeprazole (PriLOSEC 40 mg oral delayed release capsule) 1 Capsule(s) Oral Every Day potassium chloride (potassium chloride 20 mEq oral tablet, extended release) 1 Tablet(s) Oral At Bedtime pregabalin (Lyrica 150 mg oral capsule) 1 Capsule(s) Oral Three Times A Day Resume home medications Take your medications faithfully. Do NOT skip medication. Do NOT stop taking medications without the direction of a physician. Carry a list of your medications with you at all times, and take this medication list with you to your first follow up visit. Report any side effects. Avoid herbal remedies unless discussed with your physician. As part of your treatment plan, your physician may have prescribed a limited course of a controlled substance. This medication may be given to help people with moderate or severe pain or for other medical conditions, but there are risks involved with treatment. Common side effects may include nausea, constipation, drowsiness, sweating, itching, dry mouth, and rash. More serious side effects may include cognitive and motor impairment, like problems with thinking, concentrating, alertness, and movement (e.g. slowed reflexes), and driving and operating heavy machinery can be dangerous. It is important for you to talk to your physician if you have these side effects or questions. These controlled substances can produce physical dependence and be habit-forming if taken for an extended period of time, which means that the body has gotten used to them and may experience withdrawal symptoms if they are abruptly stopped. Withdrawal symptoms can include runny nose, sweating, goose bumps, diarrhea, abdominal cramping, rapid heartbeat, difficulty sleeping, and nervousness. Please dispose of unused and medications per your retail pharmacy guidance. Allergies ampicillin (hives) lisinopril (Spasmodic cough) penicillin (Giant hives 10-APR-2016 14:35:12<$>) Immunizations This Visit No Immunizations Found Education Materials Angiogram, Care After This sheet gives you [...] cannot use soap and water, use hand house coordinator. ? Change your bandage as told by [...] it is okay. ??? You may shower 24???48 hours after the procedure or as told [...] as told by your doctor, usually for 1???2 days. ??? Do not lift anything that [...] (urine) clear or pale yellow. ??? Take whju-ypw-txiujii and prescription medicines only as told by [...] okay to do so. You may shower 24???48 hours after the procedure or as told [...] 05/02/2009 Document Revised: 01/16/2018 Document Reviewed: 01/28/2017 Elsevier Patient Education ?? 2020 [employer] Radial Site Care This sheet gives [...] these instructions at home: Medicines ??? Take fouj-exb-kqxdssq and prescription medicines only as told by your health care provider. Insertion site care ??? Follow instructions from your health care provider about how to take care of your insertion site. Make sure you: ? Wash your hands with soap and water before you change your bandage (dressing). If soap and water are not available, use hand house coordinator. ? Change your dressing as told by [...] care provider approves. ??? You may shower 24???48 hours after the procedure, or as directed [...] 03/08/2011 Document Revised: 03/11/2018 Document Reviewed: 03/11/2018 [employer] Patient Education ?? 2020 [employer] Steps to Quit Smoking Smoking tobacco [...] a prescription, and some you can buy [id number]. Some medicines may contain a drug called [...] encourage you. ??? Call a phone quitline (5-298-QJLCNOW), reach out to support groups, or work [...] quitting tobacco. These problems are very bad 2???3 days after you quit, but they do not often last for more than 2???3 weeks. You may get these symptoms: ??? [...] Week 3 and afterward After the first 2???3 weeks of quitting, you may start to [...] 11/30/2009 Document Revised: 04/23/2019 Document Reviewed: 04/24/2019 [employer] Patient Education ?? 2020 [employer] Moderate Conscious Sedation, Adult, Care After [...] you are awake and alert. ??? Take wrjl-tpu-phxdlvf and prescription medicines only as told by [...] 11/24/2013 Document Revised: 01/16/2018 Document Reviewed: 05/25/2016 Elsevier Patient Education ?? 2020 [employer] Emergency Awareness and Preventative Care STROKE is an EMERGENCY Every Minute Counts Act FAST and Check for these signs: FACE Does the face look uneven? ARM Does one arm drift down? SPEECH Does their speech sound strange? TIME Call at any sign of stroke Stroke Risk Factors Atrial Fibrillation (irregular heartbeat) Diabetes Family history of stroke Heart Disease Heavy alcohol use High Blood Pressure High Cholesterol Physical inactivity and obesity Smoking Cigarette Smoking The facts are clear, cigarette smoking will shorten your life. Smoking can cause many illnesses along the way. As a healthcare provider, we recommend that you stop smoking. Assistance with quitting is available by contacting 0-207-LMRH-NOW. This is a free resource providing counseling, support, and referral. Or you may contact your personal physician. National Suicide Prevention Lifeline: The National Suicide Prevention Lifeline is a national network of local crisis centers that provides free and confidential emotional support to people in suicidal crisis or emotional distress 24 hours a day, 7 days a week. Don't Wait! Stop a Heart Attack Before it Starts What is a heart attack? A heart attack is damage or to a part of the heart from severely decreased or lack of blood flow to the heart. Over time, arteries can become narrow from the buildup of fat and cholesterol, which is called plaque. The plaque can rupture causing a blood clot to form. When the blood clot forms, the artery can become severely narrowed or completely blocked, causing a heart attack. Heart attack is the leading cause of in the [place]. 85% of muscle damage occurs within the first 2 hours. Delay in the recognition of heart attack symptoms increases the chances of . Know the early symptoms of a heart attack: Nausea Feeling of fullness in chest Jaw Pain Pain that travels down one or both arms Fatigue/being tired Anxiety Back Pain Chest pressure, squeezing, or discomfort Shortness of breath Sweating, or a cold sweat Feeling of impending doom There are unusual signs of a heart attack, too! Women, the elderly, and diabetics may present with atypical symptoms: Fainting/dizziness Weakness Confusion Risk Factors for a Heart Attack Some heart disease risk factors, such as age and family history, cannot be changed. Others, like smoking and lack of exercise, can be changed. Smoking High Cholesterol High Blood Pressure Family History Obesity Age Gender (Males are at higher risk) Lack of Exercise Diabetes Diet Stress Excessive Alcohol Intake If you or someone you know is experiencing the signs and symptoms of a heart attack, DON???T DELAY. Call immediately and seek help. If someone collapses, perform CPR! Do not attempt to drive if you are having symptoms of heart attack. Hands-Only CPR Why Hands-Only CPR? Hands-Only CPR has been shown to be as effective as conventional CPR for cardiac arrests that occur outside of a hospital. Survival depends on immediately receiving CPR from someone nearby. How do you perform Hands-Only CPR? There are two easy steps: Call if you see a teen or adult collapse Push hard and fast in the center of the chest at a beat of 100 beats per minute. Save a life! 4 WAYS TO GET AHEAD OF SEPSIS SEPSIS is a MEDICAL EMERGENCY. Time matters! Infections put you and your family at risk for a life-threatening condition called sepsis. Sepsis is the body's extreme response to an infection. It is life-threatening, and without timely treatment, sepsis can rapidly lead to tissue damage, organ failure, and . Sepsis happens when an infection you already have-in your skin, lungs, urinary tract or somewhere else-triggers a chain reaction throughout your body. 1 PREVENT INFECTIONS Take good care of chronic conditions. Talk to your doctor about getting the recommended vaccines. 2 PRACTICE GOOD HYGIENE Wash your hands frequently. Keep cuts or open sores clean and covered until they are healed. 3 KNOW THE SYMPTOMS Confusion or disorientation Shortness of breath High heart rate Fever, shivering, or feeling very cold Extreme pain or discomfort Clammy or sweaty skin 4 ACT FAST Get medical care IMMEDIATELY if you suspect sepsis or if you have an infection that is not getting better or is getting worse. To learn more about sepsis and how to prevent infections, visit www.cdc.gov/sepsis. Test Results Laboratory or Other Results This Visit (last charted value for your 10/28/2019 visit) Hematology 10/28/2019 7:49 AM Platelet Count: 192 K/uL -- Normal range between ( 163 and 369 ) Coagulation 10/28/2019 9:35 AM ACT POC: 461 Second(s) -- Normal range between ( 74 and 137 ) Patient Name:GERONIMO JR JOSUECHRISTOS FUENTES I have received and understand this information and was given the opportunity to ask questions. Patient/Stallion Keeper Name: Patient/Stallion Keeper Signature: Relationship to Patient: Clinician/Hospital Stallion Keeper Signature: Date: documented in this encounter Plan of Treatment Upcoming Encounters Date Type Department Care Team (Late st Contact Info) Description 09/09/2024 3:30 PM EDT Infusion [facility] Outpatient Infusion [address] [place] [address] 09/15/2024 1:15 PM EDT Office Visit [facility] Cardiology - [place] [address] [place] [address] Karlos Milton MD [address] [facility] [address] [place] [address] 02/21/2025 3:00 PM EST Infusion [facility] Outpatient Infusion [address] [place] [address] documented as of this encounter Visit Diagnoses Not on filedocumented in this encounter Care Teams Life Consultant Relationship Specialty Start Date End Date Nilsa Moseley PCP - General 12/19/21 04/29/22 Nilsa Moseley APRN PCP - General Nurse Practitioner 05/20/22 09/14/23 Joel Dhillon MD [address] [place] [address] PCP - General Internal Medicine 09/15/23 documented as of this encounter
--- OUTSIDE RECORDS SUMMARY | 2024-08-18 12:57 | XMS_ITS | Encounter Summary ---
Author Organization [employer] ([place], [place], [place], [place]) Address [address] [place] [address] Care Team Providers Care Installation Helper Name Role Phone Judie Moseley Primary Care Provider Judie Foster APRN Primary Care Provider [phone] Joel Dhillon MD Primary Care Provider [phone] Reason for Visit * Reason Comments Medication Refill Encounter Details Date Type Department Care Team (Late st Contact Info) Description 02/04/2022 Refill [facility] Cardiology [address] [place], [place] [id number] Thomas Delgado MD [address] [place] [address] [address] [place] [address] Social History Tobacco Use Types Packs/Day Years Used Date Smoking Tobacco: Every Day Cigarettes Smokeless Tobacco: Never Alcohol Use Standard Drinks/Week Comments Yes 0 (1 standard drink = 0.6 oz pur e alcohol) Sex and Gender Information Value Date Recorded Sex Assigned at Male 03/20/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 Legal Sex Male 5:35 PM CDT Gender Identity Male 03/20/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 Sexual Orientation Straight 03/20/2022 6: 49 PM 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 documented as of this encounter Plan of Treatment Upcoming Encounters Date Type Department Care Team (Late st Contact Info) Description 09/09/2024 3:30 PM EDT Infusion [facility] Outpatient Infusion [address] [place] [id number] 09/15/2024 1:15 PM EDT Office Visit [facility] Cardiology - [place] [address] [place] [address] Karlos Milton MD [address] [facility] [address] [place] [address] 02/21/2025 3:00 PM EST Infusion [facility] Outpatient Infusion [address] [place] [address] documented as of this encounter Visit Diagnoses Not on filedocumented in this encounter Care Teams Installation Helper Relationship Specialty Start Date End Date Judie Moseley PCP - General 12/19/21 04/29/22 Judie Moseley, FLOOR WAXER PCP - General Nurse Practitioner 05/20/22 09/14/23 Joel Dhillon MD [address] [place] [address] PCP - General Internal Medicine 09/15/23 documented as of this encounter
--- OUTSIDE RECORDS SUMMARY | 2024-08-18 12:57 | XMS_ITS | Encounter Summary ---
Author Organization [employer] ([place], [place], [place], [place]) Address [address] [place] [address] Care Team Providers Care Receiving Weigher Name Role Phone Joel Dhillon MD Primary Care Provider [phone] Encounter Details Date Type Department Care Team (Late st Contact Info) Description 05/24/2024 Abstract [facility] Cardiology - [place] [address] [place] [address] Karlos Milton MD [address] [facility] [address] [place] [address] Social History Tobacco Use Types [...] Date Troy rded Speak language other than Indonesian at home Not on file 02/27/2023 Want help with school or training Not on file 02/27/2023 Substance Use Answer Date Recorded Used prescription meds for non-medical reasons N ot on file 02/27/2023 Used illegal drugs past 12 months Not on file 02/27/2023 Sex and Gender Information Value Date Recorded Sex Assigned at Male 03/20/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 Legal Sex Male 5:35 PM CDT Gender Identity Male 03/20/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 Sexual Orientation Straight 03/20/2022 6: 49 PM METROLOGY TECHNICIAN documented as of this encounter Plan of Treatment Upcoming Encounters Date Type Department Care Team (Late st Contact Info) Description 09/09/2024 3:30 PM EDT Infusion [facility] Outpatient Infusion [address] [place] [address] 09/15/2024 1:15 PM EDT Office Visit [facility] Cardiology - [place] [address] [place] [address] Karlos Milton MD [address] [facility] [address] [place] [address] 02/21/2025 3:00 PM EST Infusion [facility] Outpatient Infusion [address] [place] [address] documented as of this encounter Visit Diagnoses Not on filedocumented in this encounter Care Teams Receiving Weigher Relationship Specialty Start Date End Date Joel Dhillon MD [address] [place] [address] PCP - General Internal Medicine 09/15/23 documented as of this encounter
[2024-08-18 14:05] VITALS: PULSE 53; PULSE 54
[2024-08-18] MEDS: ALBUTEROL 0.083% 2.5 MG/3 ML NEB IH (14:05)
--- NOTE | 2024-08-18 15:00 | CT_ITS ---
FINAL REPORT TECHNIQUE: Thin section axial images were obtained from the lung apices to the upper abdomen by computed tomography. Reformatted images were obtained and reviewed. This study was performed with techniques to keep radiation doses al low as reasonably achievable (ALARA). Individualized dose reduction techniques using automated exposure control or adjustment of mA and/or kV according to the patient's size were employed. CLINICAL HISTORY: lung cancer screening smoker 1 ppd x 35 years COMPARISON: 07/23/2023 FINDINGS: CHEST CT LOW DOSE 54-year-old female, current smoker, [id number] history. CTDI vol (mGy): 2.90 DLP (mGy-cm): 99.25 There is no axillary adenopathy. There is no mediastinal or hilar mass or adenopathy. The heart is normal in size. Coronary artery calcifications are present. There is no pericardial or pleural effusion. There is mild emphysema and mild pulmonary scarring. Lung window images demonstrate no suspicious infiltrate or nodule. Limited images of the upper abdomen are unremarkable. IMPRESSION: Lung-RADS category 1. Recommend 12 month follow up low dose chest CT. Reviewed, Interpreted and Dictated by Carlin Handy MD Transcribed by Michelle Medrano Authenticated and [facility]
== END 2024-08-18 23:59 | disposition home or self-care (01) ==
LOC: RT 12:52
PROVIDERS: PCP Internal Medicine; Visit Provider Internal Medicine Pulmonary Disease
DX: J44.9 Chronic obstructive pulmonary disease, unspecified (principal); F17.210 Nicotine dependence, cigarettes, uncomplicated; Z12.2 Encounter for screening for malignant neoplasm of respiratory organs; R94.2 Abnormal results of pulmonary function studies
CPT/HCPCS: 71271; 94060; 94618; 94640; 94726; 94729